=== PATIENT | female | born 1990 | race African-American/Black ===

== ENCOUNTER 2016-12-11 09:12 | Inpatient (IN) | payer OTHER ==
[2016-12-11 10:39] VITALS: BMI 32.8
--- NOTE | 2016-12-11 14:29 | HP ---
CIWA Score - CIWA Score Nausea/Vomitin Muscle Tremors: 3 Anxiety: 3 Agitation: 3 Paroxysmal Sweats: 2 Orientation: 0-Oriented Tacttile Disturbances: 2-Mild Itch/Numbness/Burn Auditory Disturbances: 2-Mild Harshness/Frighten Visual Disturbances: 2-Mild Sensitivity Headache: 2-Mild CIWA-Ar Total Score: 22 Admission ROS BHS - HPI Chief Complaint: i need help to stop using alcohol,marijuana Allergies/Adverse Reactions: Allergies Allergy/AdvReac Type Severity Reaction Status Date / Time No Known Allergies Allergy Verified 12/11/16 11:13 History of Present Illness: this 26 years old female with alcohol dependence,withdrawal symptom,never been in detox program syncope alcohol related nicotine dependence depression Exam Limitations: No Limitations - Ebola screening Have you traveled outside of the country in the last 21 days: No (N) Have you had contact with anyone from an Ebola affected area: No Have you been sick,other than usual withdrawal symptoms: No Do you have a fever: No - Review of Systems Constitutional: Malaise, Night Sweats, Changes in sleep, Weakness EENT: reports: Nose Congestion Respiratory: reports: No Symptoms reported Cardiac: reports: No Symptoms Reported GI: reports: Diarrhea, Nausea, Abdominal cramping : reports: No Symptoms Reported Musculoskeletal: reports: Back Pain, Muscle Pain Integumentary: reports: Dryness Neuro: reports: Headache, Tremors Endocrine: reports: No Symptoms Reported Hematology: reports: No Symptoms Reported Psychiatric: reports: Depressed Patient History - Patient Medical History Hx Anemia: No Hx Asthma: No Hx Chronic Obstructive Pulmonary Disease (COPD): No Hx Cancer: No Hx Cardiac Disorders: No Hx Congestive Heart Failure: No Hx Hypertension: No Hx Hypercholesterolemia: No Hx Seizures: No Hx Dementia: No Hx Diabetes: No Hx Gastrointestinal Disorders: No Hx Liver Disease: No Hx Genitourinary Disorders: No Hx Sexually Transmitted Disorders: No Hx Renal Disease (ESRD): No Hx Thyroid Disease: No Hx Human Immunodeficiency Virus (HIV): No (last 2014 negative) Hx Hepatitis C: No Hx Depression: Yes (no suicidal) Hx Suicide Attempt: Yes (cutter left since age of 14,over dose) Hx Bipolar Disorder: No Hx Schizophrenia: No Other Medical History: no suicidal,no homicidal - Patient Surgical History Hx Appendectomy: Yes (s/p lap appectomy age 19) Hx Section: Yes (2 years ago) - PPD History Previous Implant?: Yes Documented Results: Negative w/o proof PPD to be Administered?: Yes - Reproductive History Patient is a Female of Child Bearing Age (11 -55 yrs old): Yes Last Menstrual Period: 11/29/16 Patient : No - Smoking Cessation Smoking history: Current every day smoker Aproximately how many cigarettes per day: 10 Hx Chewing Tobacco Use: No Initiated information on smoking cessation: Yes 'Breaking Loose' booklet given: 12/11/16 - Substance & Tx. History Hx Alcohol Use: Yes Hx Substance Use: No Substance Use Type: Alcohol, Marijuana Hx Substance Use Treatment: No - Substances Abused Alcohol Route: Oral Frequency: Daily Amount used: Liquor-2 pints Age of first use: 18 Date of Last Use: 12/11/16 Marijuana/Hashish Route: Smoking Frequency: Daily Amount used: 30$ Age of first use: 14 Date of Last Use: 12/10/16 Family Disease History - Family Disease History Family History: Denies Admission Physical Exam [facility] - Vital Signs Vital Signs: Vital Signs - 24 hr 12/11/16 10:37 Temperature 98.2 F Pulse Rate 122 H Respiratory 20 Rate Blood Pressure 130/73 - Physical General Appearance: Yes: Moderate Distress, Tremorous, Irritable, Sweating, Anxious HEENTM: Yes: Nasal Congestion Respiratory: Yes: Lungs Clear Neck: Yes: Within Normal Limits Breast: Yes: Breast Exam Deferred Cardiology: Yes: Within Normal Limits, Regular Rhythm, Regular Rate, S1, S2 Abdominal: Yes: Within Normal Limits, Normal Bowel Sounds, Non Tender, Flat, Soft Genitourinary: Yes: Within Normal Limits Back: Yes: Muscle Spasm Musculoskeletal: Yes: Back pain, Muscle Pain Extremities: Yes: Tremors Neurological: Yes: spray gun sizer II-XII NML intact, Fully Oriented, Alert, Motor Strength 5/5 Integumentary: Yes: Dry Lymphatic: Yes: Within Normal Limits - Diagnostic (1) Alcohol dependence with uncomplicated withdrawal Current Visit: Yes Status: Acute (2) Cannabis dependence Current Visit: Yes Status: Acute (3) Depression Current Visit: Yes Status: Acute (4) Nicotine dependence Current Visit: Yes Status: Acute Cleared for Admission [facility] - Detox or Rehab [facility] Level of Care: Medically Managed Detox Regimen/Protocol: Librium [facility] Breath Alcohol Content Breath Alcohol Content: 0.053 Urine Pregancy Test - Result Urine Test Results: Negative- NO Line Present Urine Drug Screen - Results Drug Screen Negative: No Urine Drug Screen Results: THC-Marijuana, BZO-Benzodiazepines
[2016-12-11] MEDS ORDERED: NICOTINE POLACRILEX 2 MG GUM BUC PRN (14:44)
[2016-12-11] MEDS ORDERED: hydrOXYzine PAMOATE 50 MG CAPSULE (FP) PO PRN (14:44)
[2016-12-11] MEDS ORDERED: LOPERAMIDE HCL 2 MG CAPSULE PO PRN (14:44)
[2016-12-11] MEDS ORDERED: MENTHOL/PHENOL 1 EACH UD MM PRN (14:44)
[2016-12-11] MEDS ORDERED: MAGNESIUM HYDROX 2400MG/30ML ORAL SUSPENSION 30 ML CUP PO PRN (14:44)
[2016-12-11] MEDS ORDERED: ACETAMINOPHEN 325 MG TABLET (FP) PO PRN (14:44)
[2016-12-11] MEDS ORDERED: guaiFENesin/D-METHORPHAN HB 10 ML UNIT-DOSE CUPS PO PRN (14:44)
[2016-12-11] MEDS ORDERED: MAGNESIUM CITRATE 300 ML BOTTLE PO PRN (14:44)
[2016-12-11] MEDS ORDERED: P-EPHED 60MG/TRIPROLIDI 2.5MG TABLET PO PRN (14:44)
[2016-12-11] MEDS ORDERED: IBUPROFEN 400 MG TABLET (FP) PO PRN (14:44)
[2016-12-11] MEDS ORDERED: MAG HYDROX/AL HYDROX/SIMETH 30 ML UNIT-DOSE CUP PO PRN (14:44)
[2016-12-11] MEDS ORDERED: chlordiazePOXIDE HCL 25 MG CAPSULE PO ONE (14:57)
[2016-12-11] MEDS: NICOTINE 21 MG/24 HOURS TOPICAL PATCH TD SCH (15:27)
[2016-12-11] MEDS: chlordiazePOXIDE HCL 25 MG CAPSULE PO SCH ×2 (17:37→22:30)
[2016-12-11 18:18] LABS: URINE APPEARANCE SLCLOUDY; URINE BILIRUBIN NEGATIVE (NEGATIVE); URINE BLOOD 2+ (NEGATIVE); URINE COLOR YELLOW; URINE GLUCOSE (UA) NEGATIVE (NEGATIVE); URINE KETONE NEGATIVE (NEGATIVE); URINE LEUK ESTERASE 2+ (NEGATIVE); URINE NITRITE POSITIVE (NEGATIVE); URINE PROTEIN NEGATIVE (NEGATIVE); URINE UROBILINOGEN NEGATIVE E.U./dl (0.2-1.0)
[2016-12-11 18:26] LABS: URINE BACTERIA RARE /hpf (NONE SEEN); URINE MUCUS RARE; URINE RBC 6 /hpf (0-3); URINE WBC 195 /hpf (3-5)
[2016-12-11] MEDS: THIAMINE HCL 100 MG TABLET (FP) PO SCH (22:30)
[2016-12-11] MEDS: diphenhydrAMINE HCL 50 MG CAPSULE PO PRN (22:30)
[2016-12-12] MEDS: diphenhydrAMINE HCL 50 MG CAPSULE PO PRN (00:36)
[2016-12-12] MEDS: chlordiazePOXIDE HCL 25 MG CAPSULE PO PRN (00:37)
[2016-12-12] MEDS: chlordiazePOXIDE HCL 25 MG CAPSULE PO SCH ×4 (05:42→22:31)
[2016-12-12 10:11] LABS: MCH 30.5 pg (25.7-33.7); MCHC 33.7 g/dl (32.0-36.0); MEAN CELL VOLUME 90.7 fl (80-96); MEAN PLT VOLUME 8.1 fl (7.5-11.1); PLATELET COUNT 238 K/MM3 (134-434); RDW 14.4 % (11.6-15.6); WHITE BLOOD COUNT 5.5 K/mm3 (4.0-10.0)
[2016-12-12 10:33] LABS: ALBUMIN 3.5 g/dl (3.4-5.0); ALK PHOS 77 U/L (45-117); ANION GAP 9 (8-16); BILIRUBIN,TOTAL 0.3 mg/dL (0.2-1.0); CALCIUM 8.6 mg/dL (8.5-10.1); CO2 26 mmol/L (21-32); CREATININE 0.8 mg/dL (0.55-1.02); GLUCOSE,RANDOM 83 mg/dL (74-106); SGOT/AST 8 U/L (15-37); SGPT/ALT 14 U/L (12-78); TOT PROT 6.4 g/dl (6.4-8.2)
[2016-12-12] MEDS: PRENATAL VITAMINS W/ FOLIC ACID TABLET (FP) PO SCH (10:55)
[2016-12-12] MEDS: NICOTINE 21 MG/24 HOURS TOPICAL PATCH TD SCH (10:55)
[2016-12-12 12:16] LABS: SICKLE CELL SCREEN NEGATIVE (NEGATIVE)
--- NOTE | 2016-12-12 13:20 | PN ---
[facility] CIWA - CIWA Score Nausea/Vomitin Muscle Tremors: 3 Anxiety: 3 Agitation: 2 Paroxysmal Sweats: 3 Orientation: 0-Oriented Tacttile Disturbances: 2-Mild Itch/Numbness/Burn Auditory Disturbances: 0-None Visual Disturbances: 0-None Headache: 0-None Present CIWA-Ar Total Score: 16 S Progress Note (SOAP) Subjective: interrupted sleep, sweats, stomach upset Objective: 12/12/16 13:18 Vital Signs Temperature 97.7 F 12/12/16 10:14 Pulse Rate 107 H 12/12/16 10:14 Respiratory Rate 18 12/12/16 10:14 Blood Pressure 132/88 12/12/16 10:14 O2 Sat by Pulse Oximetry (%) Laboratory Tests 12/11/16 12/12/16 12/12/16 17:00 08:00 08:00 WBC 5.5 RBC 4.28 Hgb 13.1 Hct 38.8 MCV 90.7 MCHC 33.7 RDW 14.4 Plt Count 238 MPV 8.1 Sickle Cell Screen Negative Sodium 140 Potassium 3.9 Chloride 105 Carbon Dioxide 26 Anion Gap 9 BUN 7 Creatinine 0.8 Creat Clearance w eGFR > 60 Random Glucose 83 Calcium 8.6 Total Bilirubin 0.3 AST 8 L ALT 14 Alkaline Phosphatase 77 Total Protein 6.4 Albumin 3.5 Urine Color Yellow Urine Appearance Slcloudy Urine pH 6.0 Ur Specific [place] 1.016 Urine Protein Negative Urine Glucose (UA) Negative Urine Ketones Negative Urine Blood 2+ H Urine Nitrite Positive Urine Bilirubin Negative Urine Urobilinogen Negative Ur Leukocyte Esterase 2+ H Urine RBC 6 Urine WBC 195 Ur Epithelial Cells Rare Urine Bacteria Rare Urine Mucus Rare RPR Titer 12/12/16 08:00 WBC RBC Hgb Hct MCV MCHC RDW Plt Count MPV Sickle Cell Screen Sodium Potassium Chloride Carbon Dioxide Anion Gap BUN Creatinine Creat Clearance w eGFR Random Glucose Calcium Total Bilirubin AST ALT Alkaline Phosphatase Total Protein Albumin Urine Color Urine Appearance Urine pH Ur Specific [place] Urine Protein Urine Glucose (UA) Urine Ketones Urine Blood Urine Nitrite Urine Bilirubin Urine Urobilinogen Ur Leukocyte Esterase Urine RBC Urine WBC Ur Epithelial Cells Urine Bacteria Urine Mucus RPR Titer Nonreactive pt aox3 in nad ambulating abd soft nontender bs ++ 12/12/16 13:19 Assessment: 12/12/16 13:19 withdrawl sx's 12/12/16 13:20 abn u/a Plan: cont. detox increase fluids [place] prn repeat u/a
--- NOTE | 2016-12-12 15:40 | CONSULT ---
[facility] - Data Date of interview: 12/12/16 [facility] Identifying data: First admission to [facility] for this 26 y/o AA female seeking detox treatment on for alcohol and cannabis dependence.Patient is single,a mother of one,domiciled,unemployed and supported on Public Assistance. Substance Abuse History: - Smoking Cessation. Smoking history: Current every day smoker. Aproximately how many cigarettes per day: 10. Hx Chewing Tobacco Use: No. Initiated information on smoking cessation: Yes. 'Breaking Loose' booklet given: 12/11/16. - Substance & Tx. History. Hx Alcohol Use: Yes. Hx Substance Use: No. Substance Use Type: Alcohol, Marijuana. Hx Substance Use Treatment: No. - Substances Abused. Alcohol. Route: Oral. Frequency: Daily. Amount used: Liquor-2 pints. Age of first use: 18. Date of Last Use: 12/11/16. Marijuana/Hashish. Route: Smoking. Frequency: Daily. Amount used: 30$. Age of first use: 14. Date of Last Use: 12/10/16. Confirmed by the patient in this interview. Medical History: History of appendectomy and one . Psychiatric History: Patient denies history of psychiatric hospitalizations.No history of OPD care.Ms Queen offers a remote history of suicide attempts (age 13 ) via self-mutilation and overdose with pills. Physical/Sexual Abuse/Trauma History: Patient denies. Additional Comment: Urine Drug Screen Results: THC-Marijuana, BZO- Benzodiazepines.Noted. Mental Status Exam - Mental Status Exam Alert and Oriented to: Time, Place, Person Cognitive Function: Good Patient Appearance: Disheveled (overweight) Mood: Withdrawn, Hopeful Affect: Normal Range Patient Behavior: Fatigued, Appropriate, Cooperative Speech Pattern: Clear Voice Loudness: Normal Thought Process: Goal Oriented Thought Disorder: Not Present Hallucinations: Denies Suicidal Ideation: Denies Homicidal Ideation: Denies Insight/Judgement: Poor Sleep: Poorly, Difficulty falling asleep Appetite: Good Muscle strength/Tone: Normal Gait/Station: Normal Psychiatric Findings - Problem List ([place] 1, 2,3) (1) Alcohol dependence with uncomplicated withdrawal Current Visit: Yes Status: Acute (2) Cannabis dependence Current Visit: Yes Status: Acute (3) Nicotine dependence Current Visit: Yes Status: Acute (4) Insomnia Current Visit: Yes Status: Acute - Initial Treatment Plan Initial Treatment Plan: Psychoeducation.Detoxification.Zolpidem 10 mg po hs prn for insomnia.Patient is made aware of parasomnias.She is in agreement with this plan of care.Observation.
--- NOTE | 2016-12-12 21:36 | EKG ---
Test Reason : Blood Pressure : / mmHG Vent. Rate : 089 BPM Atrial Rate : 089 BPM P-R Int : 144 ms QRS Dur : 086 ms QT Int : 386 ms P-R-T Axes : 054 049 012 degrees QTc Int : 469 ms NORMAL SINUS RHYTHM NORMAL ECG NO PREVIOUS ECGS AVAILABLE Confirmed by GIULIA LECHUGA MD ([id number]) on 12/12/2016 9:35:52 PM Referred By: Confirmed By:GIULIA LECHUGA MD
[2016-12-12] MEDS: THIAMINE HCL 100 MG TABLET (FP) PO SCH (22:31)
[2016-12-12] MEDS: ZOLPIDEM TARTRATE 5 MG TABLET PO PRN (22:31)
[2016-12-12 22:58] LABS: URINE APPEARANCE CLOUDY; URINE BILIRUBIN NEGATIVE (NEGATIVE); URINE COLOR YELLOW; URINE GLUCOSE (UA) NEGATIVE (NEGATIVE); URINE KETONE NEGATIVE (NEGATIVE); URINE NITRITE POSITIVE (NEGATIVE); URINE PROTEIN NEGATIVE (NEGATIVE); URINE UROBILINOGEN NEGATIVE E.U./dl (0.2-1.0)
[2016-12-12 22:59] LABS: URINE BLOOD 2+ (NEGATIVE); URINE LEUK ESTERASE 2+ (NEGATIVE)
[2016-12-12 23:14] LABS: URINE BACTERIA RARE /hpf (NONE SEEN); URINE MUCUS RARE; URINE RBC 11 /hpf (0-3); URINE WBC 117 /hpf (3-5)
[2016-12-13] MEDS: chlordiazePOXIDE HCL 25 MG CAPSULE PO SCH ×2 (05:57→10:22)
[2016-12-13] MEDS: chlordiazePOXIDE HCL 25 MG CAPSULE PO PRN ×2 (09:38→19:10)
[2016-12-13] MEDS: NICOTINE 21 MG/24 HOURS TOPICAL PATCH TD SCH (10:21)
[2016-12-13] MEDS: PRENATAL VITAMINS W/ FOLIC ACID TABLET (FP) PO SCH (10:22)
--- NOTE | 2016-12-13 11:19 | PN ---
[facility] CIWA - CIWA Score Nausea/Vomitin-No Nausea/No Vomiting Muscle Tremors: 4-Moderate,w/Arms Extend Anxiety: 3 Agitation: 4-Moderately Restless Paroxysmal Sweats: 3 Orientation: 0-Oriented Tacttile Disturbances: 0-None Auditory Disturbances: 0-None Visual Disturbances: 0-None Headache: 1-Very Mild CIWA-Ar Total Score: 15 BHS COWS - Scale Resting Pulse: 0= MS 80 or Below Sweatin= Chills/Flushing Restless Observation: 0= Sits Still Pupil Size: 0= Normal to Room Light Bone or Joint Aches: 2= Severe Diffuse Aches Runny Nose/ Eye Tearin= Runny Nose/Eyes GI Upset > 30mins: 0= None Tremor Observation of Outstretched Hands: 2= Slight Tremor Visible Yawning Observation: 2= >3x During Session Anxiety or Irritability: 2=Irritable/Anxious Goose Flesh Skin: 3=Piloerection COWS Score: 14 S Progress Note (SOAP) Subjective: shakes sweats agitation body aches Objective: 12/13/16 11:19 Vital Signs Temperature 97.0 F L 12/13/16 10:26 Pulse Rate 95 H 12/13/16 10:26 Respiratory Rate 16 12/13/16 10:26 Blood Pressure 132/84 12/13/16 10:26 O2 Sat by Pulse Oximetry (%) Laboratory Tests 12/11/16 12/12/16 12/12/16 17:00 08:00 08:00 WBC 5.5 RBC 4.28 Hgb 13.1 Hct 38.8 MCV 90.7 MCHC 33.7 RDW 14.4 Plt Count 238 MPV 8.1 Sickle Cell Screen Negative Sodium 140 Potassium 3.9 Chloride 105 Carbon Dioxide 26 Anion Gap 9 BUN 7 Creatinine 0.8 Creat Clearance w eGFR > 60 Random Glucose 83 Calcium 8.6 Total Bilirubin 0.3 AST 8 L ALT 14 Alkaline Phosphatase 77 Total Protein 6.4 Albumin 3.5 Urine Color Yellow Urine Appearance Slcloudy Urine pH 6.0 Ur Specific [place] 1.016 Urine Protein Negative Urine Glucose (UA) Negative Urine Ketones Negative Urine Blood 2+ H Urine Nitrite Positive Urine Bilirubin Negative Urine Urobilinogen Negative Ur Leukocyte Esterase 2+ H Urine RBC 6 Urine WBC 195 Ur Epithelial Cells Rare Urine Bacteria Rare Urine Mucus Rare RPR Titer 12/12/16 12/12/16 08:00 19:07 WBC RBC Hgb Hct MCV MCHC RDW Plt Count MPV Sickle Cell Screen Sodium Potassium Chloride Carbon Dioxide Anion Gap BUN Creatinine Creat Clearance w eGFR Random Glucose Calcium Total Bilirubin AST ALT Alkaline Phosphatase Total Protein Albumin Urine Color Yellow Urine Appearance Cloudy Urine pH 6.0 Ur Specific [place] 1.015 Urine Protein Negative Urine Glucose (UA) Negative Urine Ketones Negative Urine Blood 2+ H Urine Nitrite Positive Urine Bilirubin Negative Urine Urobilinogen Negative Ur Leukocyte Esterase 2+ H Urine RBC 11 Urine WBC 117 Ur Epithelial Cells Few Urine Bacteria Rare Urine Mucus Rare RPR Titer Nonreactive awake/alert ambulating no acute distress repeated u/a improved pt denies of any s/s uti Assessment: 12/13/16 11:21 withdrawal sx Plan: continue detox increase fluids ensure plus 120ml p bid
[2016-12-13] MEDS ORDERED: cloNIDine HCL 0.1 MG TABLET PO ONE (11:23)
[2016-12-13] MEDS: chlordiazePOXIDE 5 MG CAPSULE PO SCH ×2 (18:08→22:35)
[2016-12-13] MEDS: ZOLPIDEM TARTRATE 5 MG TABLET PO PRN (22:35)
[2016-12-13] MEDS: THIAMINE HCL 100 MG TABLET (FP) PO SCH (22:36)
[2016-12-14] MEDS: chlordiazePOXIDE 5 MG CAPSULE PO SCH ×2 (05:30→10:23)
--- NOTE | 2016-12-14 10:09 | PN ---
BHS Progress Note (SOAP) Subjective: interrupted sleep, sweats, diarrhea Objective: 12/14/16 10:08 Vital Signs Temperature 98.2 F 12/14/16 09:54 Pulse Rate 99 H 12/14/16 09:54 Respiratory Rate 18 12/14/16 09:54 Blood Pressure 112/77 12/14/16 09:54 O2 Sat by Pulse Oximetry (%) 12/14/16 11:41 pt aox3 in nad ambulating Assessment: 12/14/16 10:08 withdrawal sx's 12/14/16 11:42 Plan: cont, detox increase fluids imodium prn d/c in am
[2016-12-14] MEDS: PRENATAL VITAMINS W/ FOLIC ACID TABLET (FP) PO SCH (10:23)
[2016-12-14] MEDS: NICOTINE 21 MG/24 HOURS TOPICAL PATCH TD SCH (10:24)
[2016-12-14] MEDS: chlordiazePOXIDE HCL 10 MG CAPSULE PO SCH ×2 (17:08→22:15)
[2016-12-14] MEDS: THIAMINE HCL 100 MG TABLET (FP) PO SCH (22:15)
[2016-12-14] MEDS: ZOLPIDEM TARTRATE 5 MG TABLET PO PRN (22:16)
[2016-12-15] MEDS: chlordiazePOXIDE HCL 10 MG CAPSULE PO SCH (05:28)
[2016-12-15 06:53] VITALS: BP 110/63; PULSE 83; TEMP 98.2
--- NOTE | 2016-12-15 15:10 | DS ---
[facility] Detox Discharge Summary Admission Date: 12/11/16 Discharge Date: 12/15/16 - History Present History: Alcohol Dependence, Cannabis Dependence Additional Comments: ADVISED PATIENT TO FOLLOW-UP WITH [facility] / REHAB MEDICAL PROVIDER AFTER DISCHARGE FROM DETOX FOR GENERAL MEDICAL ASSESSMENT. Pertinent Past History: Depression. - Physical Exam Results Vital Signs: Vital Signs Temperature 98.2 F 12/15/16 06:52 Pulse Rate 83 12/15/16 06:52 Respiratory Rate 18 12/15/16 06:52 Blood Pressure 110/63 12/15/16 06:52 O2 Sat by Pulse Oximetry (%) Pertinent Admission Physical Exam Findings: WITHDRAWAL SYMPTOMS. Laboratory Last Values WBC 5.5 K/mm3 (4.0-10.0) 12/12/16 08:00 RBC 4.28 M/mm3 (3.60-5.2) 12/12/16 08:00 Hgb 13.1 GM/dL (10.7-15.3) 12/12/16 08:00 Hct 38.8 % (32.4-45.2) 12/12/16 08:00 MCV 90.7 fl (80-96) 12/12/16 08:00 MCHC 33.7 g/dl (32.0-36.0) 12/12/16 08:00 RDW 14.4 % (11.6-15.6) 12/12/16 08:00 Plt Count 238 K/MM3 (134-434) 12/12/16 08:00 MPV 8.1 fl (7.5-11.1) 12/12/16 08:00 Sickle Cell Screen Negative (NEGATIVE) 12/12/16 08:00 Sodium 140 mmol/L (136-145) 12/12/16 08:00 Potassium 3.9 mmol/L (3.5-5.1) 12/12/16 08:00 Chloride 105 mmol/L (98-107) 12/12/16 08:00 Carbon Dioxide 26 mmol/L (21-32) 12/12/16 08:00 Anion Gap 9 (8-16) 12/12/16 08:00 BUN 7 mg/dL (7-18) 12/12/16 08:00 Creatinine 0.8 mg/dL (0.55-1.02) 12/12/16 08:00 Creat Clearance w eGFR > 60 (>60) 12/12/16 08:00 Random Glucose 83 mg/dL (74-106) 12/12/16 08:00 Calcium 8.6 mg/dL (8.5-10.1) 12/12/16 08:00 Total Bilirubin 0.3 mg/dL (0.2-1.0) 12/12/16 08:00 AST 8 U/L (15-37) L 12/12/16 08:00 ALT 14 U/L (12-78) 12/12/16 08:00 Alkaline Phosphatase 77 U/L (45-117) 12/12/16 08:00 Total Protein 6.4 g/dl (6.4-8.2) 12/12/16 08:00 Albumin 3.5 g/dl (3.4-5.0) 12/12/16 08:00 Urine Color Yellow 12/12/16 19:07 Urine Appearance Cloudy 12/12/16 19:07 Urine pH 6.0 (5.0-8.0) 12/12/16 19:07 Ur Specific [place] 1.015 (1.001-1.035) 12/12/16 19:07 Urine Protein Negative (NEGATIVE) 12/12/16 19:07 Urine Glucose (UA) Negative (NEGATIVE) 12/12/16 19:07 Urine Ketones Negative (NEGATIVE) 12/12/16 19:07 Urine Blood 2+ (NEGATIVE) H 12/12/16 19:07 Urine Nitrite Positive (NEGATIVE) 12/12/16 19:07 Urine Bilirubin Negative (NEGATIVE) 12/12/16 19:07 Urine Urobilinogen Negative E.U./dl (0.2-1.0) 12/12/16 19:07 Ur Leukocyte Esterase 2+ (NEGATIVE) H 12/12/16 19:07 Urine RBC 11 /hpf (0-3) 12/12/16 19:07 Urine WBC 117 /hpf (3-5) 12/12/16 19:07 Ur Epithelial Cells Few /hpf (FEW) 12/12/16 19:07 Urine Bacteria Rare /hpf (NONE SEEN) 12/12/16 19:07 Urine Mucus Rare 12/12/16 19:07 RPR Titer Nonreactive (NONREACTIVE) 12/12/16 08:00 LABS NOTED. - Treatment Hospital Course: Detox Protocol Followed, Detoxed Safely, Responded well, Discharged Condition Good - Medication Discharge Medications: Ambulatory Orders NK [No Known Home Medication] 12/11/16 - Diagnosis (1) Alcohol dependence with uncomplicated withdrawal Status: Acute (2) Cannabis dependence Status: Acute (3) Depression Status: Chronic Qualifiers: Depression Type: unspecified Qualified Code(s): F32.9 - Major depressive disorder, single episode, unspecified (4) Insomnia Status: Chronic Qualifiers: Insomnia type: unspecified Qualified Code(s): G47.00 - Insomnia, unspecified (5) Nicotine dependence Status: Chronic Qualifiers: Nicotine product type: cigarettes Substance use status: uncomplicated Qualified Code(s): F17.210 - Nicotine dependence, cigarettes, uncomplicated - AMA Did Patient Leave Against Medical Advice: No
== END 2016-12-15 09:23 | disposition home or self-care (01) | DRG 775 ==
LOC: YASAS 09:12 → Y6N 11:59
PROVIDERS: ADMIT Internal Medicine; ATTEND Internal Medicine Addiction Medicine
PROC: HZ2ZZZZ Detoxification Services for Substance Abuse Treatment (ICD-10-PCS; principal; 2016-12-15)
DX: F10.230 Alcohol dependence with withdrawal, uncomplicated (principal); F12.20 Cannabis dependence, uncomplicated; F17.210 Nicotine dependence, cigarettes, uncomplicated; F32.9 Major depressive disorder, single episode, unspecified; G47.00 Insomnia, unspecified
CPT/HCPCS: 36415; 80053; 81003; 81015; 85027; 85660; 86593; 93005; 93010

== ENCOUNTER 2016-12-26 15:37 | Inpatient (IN) | payer OTHER ==
[2016-12-26 18:03] VITALS: BMI 31.6
--- NOTE | 2016-12-26 19:39 | HP ---
CIWA Score - CIWA Score Nausea/Vomitin-Mild Nausea/No Vomiting Muscle Tremors: 4-Moderate,w/Arms Extend Anxiety: 4-Mod. Anxious/Guarded Agitation: 4-Moderately Restless Paroxysmal Sweats: 2 Orientation: 1-Uncertain about Date Tacttile Disturbances: 0-None Auditory Disturbances: 0-None Visual Disturbances: 0-None Headache: 3-Moderate CIWA-Ar Total Score: 19 Admission ROS BHS - HPI Chief Complaint: WITHDRAWAL SX Allergies/Adverse Reactions: Allergies Allergy/AdvReac Type Severity Reaction Status Date / Time No Known Allergies Allergy Verified 12/26/16 18:06 History of Present Illness: 26 YEARS OLD FEMALE WITH LONG HISTORY OF ALCOHOL MARIJUANA COCAINE XANAX NICOTINE DEPENDENCE DENIES MEDICAL HAS DEPRESSION IS ADMITTED TO DETOX BP 162/87 UPON ADMISSION WITH HEADACHE, LIBRIUM 50 MG X 1 Exam Limitations: No Limitations - Ebola screening Have you traveled outside of the country in the last 21 days: No Have you had contact with anyone from an Ebola affected area: No Have you been sick,other than usual withdrawal symptoms: No Do you have a fever: No - Review of Systems Constitutional: Chills, Changes in sleep, Weight Stable EENT: reports: No Symptoms Reported Respiratory: reports: No Symptoms reported Cardiac: reports: No Symptoms Reported GI: reports: Nausea, Poor Fluid Intake, Abdominal cramping : reports: No Symptoms Reported Musculoskeletal: reports: Back Pain Integumentary: reports: No Symptoms Reported Neuro: reports: Tremors Endocrine: reports: No Symptoms Reported Hematology: reports: No Symptoms Reported Psychiatric: reports: Judgement Intact, Depressed Other Systems: Reviewed and Negative Patient History - Patient Medical History Hx Anemia: No Hx Asthma: Yes Hx Chronic Obstructive Pulmonary Disease (COPD): No Hx Cancer: No Hx Cardiac Disorders: No Hx Congestive Heart Failure: No Hx Hypertension: No Hx Hypercholesterolemia: No Hx Pacemaker: No HX Cerebrovascular Accident: No Hx Seizures: No Hx Dementia: No Hx Diabetes: No Hx Gastrointestinal Disorders: No Hx Liver Disease: No Hx Genitourinary Disorders: No Hx Sexually Transmitted Disorders: No Hx Renal Disease (ESRD): No Hx Thyroid Disease: No Hx Human Immunodeficiency Virus (HIV): No (last 2014 negative) Hx Hepatitis C: No Hx Depression: Yes Hx Suicide Attempt: Yes (cutter left since age of 14,over dose) Hx Bipolar Disorder: No Hx Schizophrenia: No - Patient Surgical History Past Surgical History: Yes Hx Neurologic Surgery: No Hx Cataract Extraction: No Hx Cardiac Surgery: No Hx Lung Surgery: No Hx Breast Surgery: No Hx Breast Biopsy: No Hx Abdominal Surgery: No Hx Appendectomy: Yes (s/p lap appectomy age 19) Hx Cholecystectomy: No Hx Genitourinary Surgery: No Hx Section: Yes (2014) Hx Orthopedic Surgery: No Hx Hysterectomy: No Anesthesia Reaction: No - PPD History Previous Implant?: Yes Documented Results: Negative w/proof Implanted On Prior [facility] Admission?: Yes Date: 12/13/16 Results: 0 mm PPD to be Administered?: No - Reproductive History Patient is a Female of Child Bearing Age (11 -55 yrs old): Yes Last Menstrual Period: 12/25/16 Patient : No - Smoking Cessation Smoking history: Current every day smoker Aproximately how many cigarettes per day: 20 Cigars Per Day: 0 Hx Chewing Tobacco Use: No Initiated information on smoking cessation: Yes 'Breaking Loose' booklet given: 12/26/16 - Substance & Tx. History Hx Alcohol Use: Yes Hx Substance Use: Yes Substance Use Type: Alcohol, Cocaine, Marijuana, Tranquilizers Hx Substance Use Treatment: Yes - Substances Abused Alcohol Route: Oral Frequency: Daily Amount used: cogniac 1 pint, jose alfredo 1 pint, beer 2 of 6p Age of first use: 12 Date of Last Use: 12/26/16 Cocaine Route: Inhalation Frequency: Daily Amount used: 1 gram Age of first use: 18 Date of Last Use: 12/24/16 Marijuana/Hashish Route: Smoking Frequency: Daily Amount used: $40 Age of first use: 14 Date of Last Use: 12/26/16 Family Disease History - Family Disease History Family Disease History: Diabetes: Father, Mother, Heart Disease: Father, Mother , CA: Father, Mother Admission Physical Exam [facility]HS - Vital Signs Vital Signs: Vital Signs - 24 hr 12/26/16 18:02 Temperature 97.8 F Pulse Rate 121 H Respiratory 20 Rate Blood Pressure 162/87 - Physical General Appearance: Yes: Appropriately Dressed, Moderate Distress, Obese, Tremorous, Irritable, Sweating, Anxious HEENTM: Yes: Hearing grossly Normal, Normal ENT Inspection, Normocephalic, Normal Voice Respiratory: Yes: Chest Non-Tender, Lungs Clear, Normal Breath Sounds, No Respiratory Distress, No Accessory Muscle Use Neck: Yes: Supple, Trachea in good position Cardiology: Yes: Regular Rhythm, S1, S2, Tachycardia Abdominal: Yes: Non Tender, Soft Genitourinary: Yes: Within Normal Limits Back: Yes: Normal Inspection Musculoskeletal: Yes: full range of Motion, Gait Steady, Back pain Extremities: Yes: Normal Inspection, Normal Range of Motion, Non-Tender, Tremors Neurological: Yes: Alert, Motor Strength 5/5, Normal Response, Depressed Affect Integumentary: Yes: Warm, Moist Lymphatic: Yes: Within Normal Limits - Diagnostic (1) Alcohol dependence with uncomplicated withdrawal Current Visit: Yes Status: Acute (2) Nicotine dependence Current Visit: Yes Status: Acute Qualifiers: Nicotine product type: cigarettes Substance use status: in withdrawal Qualified Code(s): F17.213 - Nicotine dependence, cigarettes, with withdrawal (3) Cocaine dependence, uncomplicated Current Visit: Yes Status: Chronic (4) Cannabis dependence, uncomplicated Current Visit: Yes Status: Chronic (5) Asthma Current Visit: Yes Status: Acute Qualifiers: Asthma severity: mild intermittent Asthma complication type: with status asthmaticus Qualified Code(s): J45.22 - Mild intermittent asthma with status asthmaticus Cleared for Admission [facility] - Detox or Rehab [facility] Level of Care: Medically Managed Detox Regimen/Protocol: Librium [facility] Breath Alcohol Content Breath Alcohol Content: 0 Urine Pregancy Test - Result Urine Test Results: Negative- NO Line Present Urine Drug Screen - Results Drug Screen Negative: No Urine Drug Screen Results: THC-Marijuana, ISAIAS-Cocaine, BZO-Benzodiazepines
[2016-12-26] MEDS ORDERED: ACETAMINOPHEN 325 MG TABLET (FP) PO PRN (19:48)
[2016-12-26] MEDS ORDERED: IBUPROFEN 400 MG TABLET (FP) PO PRN (19:48)
[2016-12-26] MEDS ORDERED: MAG HYDROX/AL HYDROX/SIMETH 30 ML UNIT-DOSE CUP PO PRN (19:48)
[2016-12-26] MEDS ORDERED: MAGNESIUM CITRATE 300 ML BOTTLE PO PRN (19:48)
[2016-12-26] MEDS ORDERED: diphenhydrAMINE HCL 50 MG CAPSULE PO PRN (19:48)
[2016-12-26] MEDS ORDERED: MAGNESIUM HYDROX 2400MG/30ML ORAL SUSPENSION 30 ML CUP PO PRN (19:48)
[2016-12-26] MEDS ORDERED: LOPERAMIDE HCL 2 MG CAPSULE PO PRN (19:48)
[2016-12-26] MEDS ORDERED: chlordiazePOXIDE HCL 25 MG CAPSULE PO PRN (19:48)
[2016-12-26] MEDS ORDERED: guaiFENesin/D-METHORPHAN HB 10 ML UNIT-DOSE CUPS PO PRN (19:48)
[2016-12-26] MEDS ORDERED: P-EPHED 60MG/TRIPROLIDI 2.5MG TABLET PO PRN (19:48)
[2016-12-26] MEDS ORDERED: MENTHOL/PHENOL 1 EACH UD MM PRN (19:48)
[2016-12-26] MEDS ORDERED: NICOTINE POLACRILEX 4 MG GUM BUC PRN (19:51)
[2016-12-26] MEDS ORDERED: ALBUTEROL SO4 6.7 GM HFA INHALER IH PRN (19:52)
[2016-12-26] MEDS ORDERED: THIAMINE HCL 100 MG TABLET (FP) PO SCH (22:00)
[2016-12-26] MEDS: chlordiazePOXIDE HCL 25 MG CAPSULE PO SCH (22:43)
[2016-12-26 22:55] LABS: URINE APPEARANCE CLEAR; URINE BILIRUBIN NEGATIVE (NEGATIVE); URINE COLOR STRAW; URINE GLUCOSE (UA) NEGATIVE (NEGATIVE); URINE KETONE NEGATIVE (NEGATIVE); URINE LEUK ESTERASE NEGATIVE (NEGATIVE); URINE NITRITE NEGATIVE (NEGATIVE); URINE PROTEIN NEGATIVE (NEGATIVE); URINE UROBILINOGEN NEGATIVE E.U./dl (0.2-1.0)
[2016-12-26 22:56] LABS: URINE BLOOD 2+ (NEGATIVE)
[2016-12-26 23:02] LABS: URINE MUCUS RARE; URINE RBC 4 /hpf (0-3); URINE WBC 3 /hpf (3-5)
[2016-12-27] MEDS: chlordiazePOXIDE HCL 25 MG CAPSULE PO SCH ×2 (05:46→11:27)
--- NOTE | 2016-12-27 07:38 | CONSULT ---
[facility] Psychiatric Consult - Data Date of interview: 12/27/16 Admission source: [facility] Identifying data: This is 26 years old female with no psychiatric hospitalization history intoxicated with: Alcohol, Cannabis, Cocaine and Nicotine Substance Abuse History: - Smoking Cessation. Smoking history: Current every day smoker. Aproximately how many cigarettes per day: 20. Cigars Per Day: 0. Hx Chewing Tobacco Use: No. Initiated information on smoking cessation: Yes. ' Breaking Loose' booklet given: 12/26/16. - Substance & Tx. History. Hx Alcohol Use: Yes. Hx Substance Use: Yes. Substance Use Type: Alcohol, Cocaine , Marijuana, Tranquilizers. Hx Substance Use Treatment: Yes. - Substances Abused. Alcohol. Route: Oral. Frequency: Daily. Amount used: cogniac 1 pint, jose alfredo 1 pint, beer 2 of 6p. Age of first use: 12. Date of Last Use: 05/07. Cocaine. Route: Inhalation. Frequency: Daily. Amount used: 1 gram. Age of first use: 18. Date of Last Use: 12/24/16. Marijuana/ Hashish. Route: Smoking. Frequency: Daily. Amount used: $40. Age of first use: 14. Date of Last Use: 12/26/16 Medical History: Asthma Psychiatric History: Denies Physical/Sexual Abuse/Trauma History: Denies Additional Comment: Observation. Detox Unit Care Protocol Mental Status Exam - Mental Status Exam Alert and Oriented to: Person Cognitive Function: Fair Patient Appearance: Unkempt Mood: Sad Affect: Flat Patient Behavior: Sedated Speech Pattern: Delayed Voice Loudness: Mildly Soft/Quiet Thought Process: Circumstantial Thought Disorder: Being Controlled Hallucinations: Denies Suicidal Ideation: Denies Homicidal Ideation: Denies Insight/Judgement: Fair Sleep: Difficulty falling asleep Appetite: Fair Muscle strength/Tone: Mild Hypotonicity Gait/Station: Shuffling Additional Comments: Observation. Detox Unit Care Protocol Psychiatric Findings - Problem List ([place] 1, 2,3) (1) Alcohol dependence with uncomplicated withdrawal Current Visit: Yes Status: Acute (2) Nicotine dependence Current Visit: Yes Status: Acute Qualifiers: Nicotine product type: cigarettes Substance use status: in withdrawal Qualified Code(s): F17.213 - Nicotine dependence, cigarettes, with withdrawal (3) Cannabis dependence, uncomplicated Current Visit: Yes Status: Chronic (4) Cocaine dependence, uncomplicated Current Visit: Yes Status: Chronic (5) Cannabis dependence Current Visit: No Status: Acute (6) Drug-induced mood disorder Current Visit: Yes Status: Acute - Initial Treatment Plan Initial Treatment Plan: Observation. Detox Unit Care Protocol
[2016-12-27 09:59] LABS: MCH 30.7 pg (25.7-33.7); MCHC 33.8 g/dl (32.0-36.0); MEAN CELL VOLUME 90.7 fl (80-96); MEAN PLT VOLUME 8.2 fl (7.5-11.1); PLATELET COUNT 220 K/MM3 (134-434); RDW 14.7 % (11.6-15.6); WHITE BLOOD COUNT 5.7 K/mm3 (4.0-10.0)
[2016-12-27] MEDS ORDERED: NICOTINE 21 MG/24 HOURS TOPICAL PATCH TD SCH (10:00)
[2016-12-27] MEDS ORDERED: PRENATAL VITAMINS W/ FOLIC ACID TABLET (FP) PO SCH (10:00)
[2016-12-27 10:19] VITALS: BP 123/75; PULSE 92; TEMP 97.2
[2016-12-27 10:25] LABS: ALBUMIN 3.2 g/dl (3.4-5.0); ALK PHOS 69 U/L (45-117); ANION GAP 8 (8-16); BILIRUBIN,TOTAL 0.7 mg/dL (0.2-1.0); CALCIUM 8.5 mg/dL (8.5-10.1); CO2 27 mmol/L (21-32); CREATININE 0.6 mg/dL (0.55-1.02); GLUCOSE,RANDOM 85 mg/dL (74-106); SGOT/AST 10 U/L (15-37); SGPT/ALT 14 U/L (12-78); TOT PROT 6.2 g/dl (6.4-8.2)
[2016-12-27 11:07] LABS: HIV 1 & 2 AB NEGATIVE; HIV 1 AGp24 NEGATIVE
--- NOTE | 2016-12-27 11:52 | DS ---
[facility] Detox Discharge Summary Admission Date: 12/26/16 Discharge Date: 12/27/16 - History Present History: Alcohol Dependence, Cannabis Dependence, Cocaine Dependence - Physical Exam Results Vital Signs: Vital Signs Temperature 97.2 F L 12/27/16 10:18 Pulse Rate 92 H 12/27/16 10:18 Respiratory Rate 16 12/27/16 10:18 Blood Pressure 123/75 12/27/16 10:18 O2 Sat by Pulse Oximetry (%) - Treatment Hospital Course: Detox Protocol Followed - Medication Discharge Medications: Ambulatory Orders NK [No Known Home Medication] 12/11/16 - Diagnosis (1) Alcohol dependence with uncomplicated withdrawal Current Visit: Yes Status: Acute (2) Asthma Current Visit: Yes Status: Acute Qualifiers: Asthma severity: mild intermittent Asthma complication type: with status asthmaticus Qualified Code(s): J45.22 - Mild intermittent asthma with status asthmaticus - AMA Did Patient Leave Against Medical Advice: No
--- NOTE | 2016-12-27 12:52 | EKG ---
Test Reason : Blood Pressure : / mmHG Vent. Rate : 094 BPM Atrial Rate : 094 BPM P-R Int : 126 ms QRS Dur : 084 ms QT Int : 358 ms P-R-T Axes : 058 062 020 degrees QTc Int : 447 ms NORMAL SINUS RHYTHM POSSIBLE LEFT ATRIAL ENLARGEMENT T WAVE ABNORMALITY, CONSIDER ANTERIOR ISCHEMIA ABNORMAL ECG WHEN COMPARED WITH ECG OF 11-DEC-2016 15:41, T WAVE INVERSION NOW EVIDENT IN ANTERIOR LEADS Confirmed by RIGOBERTO CONTRERAS, AURA ([id number]) on 12/27/2016 12:52:31 PM Referred By: Confirmed By:AURA FRANKLIN MD
[2016-12-27] MEDS ORDERED: chlordiazePOXIDE HCL 25 MG CAPSULE PO SCH (23:00)
[2016-12-28] MEDS ORDERED: chlordiazePOXIDE 5 MG CAPSULE PO SCH (23:00)
[2016-12-29] MEDS ORDERED: chlordiazePOXIDE HCL 10 MG CAPSULE PO SCH (23:00)
== END 2016-12-27 12:19 | disposition other institution (70) | DRG 774 ==
LOC: YASAS 15:37 → Y6N 19:49
PROVIDERS: ADMIT Internal Medicine Addiction Medicine; ATTEND Internal Medicine Addiction Medicine
PROC: HZ2ZZZZ Detoxification Services for Substance Abuse Treatment (ICD-10-PCS; principal; 2016-12-26)
DX: F10.230 Alcohol dependence with withdrawal, uncomplicated (principal); F14.20 Cocaine dependence, uncomplicated; F12.20 Cannabis dependence, uncomplicated; F17.210 Nicotine dependence, cigarettes, uncomplicated; F19.24 Other psychoactive substance dependence with psychoactive substance-induced mood disorder; J45.22 Mild intermittent asthma with status asthmaticus; R00.0 Tachycardia, unspecified; Z91.5 Personal history of self-harm
CPT/HCPCS: 36415; 80053; 81003; 81015; 85027; 86593; 87389; 93005; 93010

== ENCOUNTER 2016-12-27 12:36 | Inpatient (IN) | payer OTHER ==
[2016-12-27 13:14] VITALS: BMI 32.2
[2016-12-27] MEDS ORDERED: MAGNESIUM HYDROX 2400MG/30ML ORAL SUSPENSION 30 ML CUP PO PRN (15:13)
[2016-12-27] MEDS ORDERED: MAG HYDROX/AL HYDROX/SIMETH 30 ML UNIT-DOSE CUP PO PRN (15:13)
[2016-12-27] MEDS ORDERED: ACETAMINOPHEN 325 MG TABLET (FP) PO PRN (15:13)
[2016-12-27] MEDS ORDERED: MAGNESIUM CITRATE 300 ML BOTTLE PO PRN (15:13)
[2016-12-27] MEDS ORDERED: guaiFENesin/D-METHORPHAN HB 10 ML UNIT-DOSE CUPS PO PRN (15:13)
[2016-12-27] MEDS ORDERED: LOPERAMIDE HCL 2 MG CAPSULE PO PRN (15:13)
[2016-12-27] MEDS ORDERED: NICOTINE POLACRILEX 2 MG GUM BUC PRN (15:13)
[2016-12-27] MEDS ORDERED: P-EPHED 60MG/TRIPROLIDI 2.5MG TABLET PO PRN (15:13)
[2016-12-27] MEDS ORDERED: MENTHOL/PHENOL 1 EACH UD MM PRN (15:13)
--- NOTE | 2016-12-27 15:14 | HP ---
[facility] CONTRERAS Rehab Assess/Revision - Admission History Admitted to Rehab from: [facility] [address] [place] Date of Admission to Rehab: 12/27/16 - Vital signs Vital Signs: Vital Signs Period Temp Pulse Resp BP Sys/Melissa Pulse Ox Last 24 Hr 98.2 F-98.2 F 94-94 18-18 119-119/85-85 - Findings Detox History & Physical reviewed: Yes Concur with findings: Yes
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
[2016-12-27] MEDS: THIAMINE HCL 100 MG TABLET (FP) PO SCH (21:36)
[2016-12-27] MEDS: GABAPENTIN 100 MG CAPSULE (FP) PO SCH (21:36)
[2016-12-27] MEDS: diphenhydrAMINE HCL 50 MG CAPSULE PO PRN (21:37)
[2016-12-28] MEDS: GABAPENTIN 100 MG CAPSULE (FP) PO SCH ×3 (06:29→21:36)
[2016-12-28] MEDS: hydrOXYzine PAMOATE 50 MG CAPSULE (FP) PO PRN ×2 (06:30→13:09)
[2016-12-28] MEDS: NICOTINE 21 MG/24 HOURS TOPICAL PATCH TD SCH (10:38)
[2016-12-28] MEDS: PRENATAL VITAMINS W/ FOLIC ACID TABLET (FP) PO SCH (10:38)
[2016-12-28] MEDS: THIAMINE HCL 100 MG TABLET (FP) PO SCH (21:36)
[2016-12-28] MEDS: diphenhydrAMINE HCL 50 MG CAPSULE PO PRN ×2 (21:36→23:11)
[2016-12-29] MEDS: hydrOXYzine PAMOATE 50 MG CAPSULE (FP) PO PRN ×3 (07:06→21:44)
[2016-12-29] MEDS: GABAPENTIN 100 MG CAPSULE (FP) PO SCH ×3 (07:08→21:45)
[2016-12-29] MEDS: NICOTINE 21 MG/24 HOURS TOPICAL PATCH TD SCH (10:44)
[2016-12-29] MEDS: PRENATAL VITAMINS W/ FOLIC ACID TABLET (FP) PO SCH (10:44)
[2016-12-29] MEDS: THIAMINE HCL 100 MG TABLET (FP) PO SCH (21:44)
[2016-12-29] MEDS: diphenhydrAMINE HCL 50 MG CAPSULE PO PRN (23:39)
[2016-12-30] MEDS: GABAPENTIN 100 MG CAPSULE (FP) PO SCH ×3 (06:39→21:24)
[2016-12-30] MEDS: hydrOXYzine PAMOATE 50 MG CAPSULE (FP) PO PRN ×3 (06:39→19:59)
[2016-12-30] MEDS: PRENATAL VITAMINS W/ FOLIC ACID TABLET (FP) PO SCH (10:06)
[2016-12-30] MEDS: NICOTINE 21 MG/24 HOURS TOPICAL PATCH TD SCH (10:06)
[2016-12-30] MEDS: THIAMINE HCL 100 MG TABLET (FP) PO SCH (21:24)
[2016-12-30] MEDS: IBUPROFEN 400 MG TABLET (FP) PO PRN (21:25)
[2016-12-30] MEDS: diphenhydrAMINE HCL 50 MG CAPSULE PO PRN (23:23)
[2016-12-31] MEDS: hydrOXYzine PAMOATE 50 MG CAPSULE (FP) PO PRN ×2 (06:23→13:09)
[2016-12-31] MEDS: GABAPENTIN 100 MG CAPSULE (FP) PO SCH ×3 (06:24→21:27)
[2016-12-31] MEDS: PRENATAL VITAMINS W/ FOLIC ACID TABLET (FP) PO SCH (10:11)
[2016-12-31] MEDS: NICOTINE 21 MG/24 HOURS TOPICAL PATCH TD SCH (10:11)
[2016-12-31] MEDS: THIAMINE HCL 100 MG TABLET (FP) PO SCH (21:27)
[2016-12-31] MEDS: diphenhydrAMINE HCL 50 MG CAPSULE PO PRN ×2 (21:27→23:07)
[2017-01-01] MEDS: hydrOXYzine PAMOATE 50 MG CAPSULE (FP) PO PRN ×2 (06:29→10:10)
[2017-01-01] MEDS: GABAPENTIN 100 MG CAPSULE (FP) PO SCH ×4 (06:29→21:35)
[2017-01-01] MEDS: NICOTINE 21 MG/24 HOURS TOPICAL PATCH TD SCH (10:10)
[2017-01-01] MEDS: PRENATAL VITAMINS W/ FOLIC ACID TABLET (FP) PO SCH (10:10)
[2017-01-01] MEDS ORDERED: COLLOIDAL OATMEAL 1 BAR EACH TP PRN (12:09)
--- NOTE | 2017-01-01 14:55 | PN ---
Psychiatric Progress Note Vital Signs: Vital Signs Period Temp Pulse Resp BP Sys/Melissa Pulse Ox Last 24 Hr 97.3 F 83 18-18 107/71 Date of Session: 01/01/17 Chief Complaint:: Quan still nervious,thinking a lot,having mood swings. HPI: Patient addressed Alcohol,Cannabis dependence comorbid with Substance induced mood disorder. ROS: Significant for BA. Current Medications: Active Medications Generic Name Dose Route Start Last Admin Trade Name Freq PRN Reason Stop Dose Admin Acetaminophen 650 mg 12/27/16 15:13 Tylenol - PO Q4H PRN FEVER OR PAIN Al Hydroxide/Mg Hydroxide 30 ml 12/27/16 15:13 Mylanta Oral Suspension - PO Q6H PRN DYSPEPSIA Colloidal Oatmeal 1 applic 01/01/17 12:09 01/01/17 13:31 Aveeno Soap - TP 1 applic DAILY PRN Administration HYGEINE Diphenhydramine HCl 50 mg 12/27/16 15:13 12/31/16 23:07 Benadryl - PO 50 mg HSMR1 PRN Administration FOR ITCHING Eucalyptus/Menthol/Phenol/Sorbitol 1 each 12/27/16 15:13 Cepastat Lozenge - MM Q4H PRN SORE THROAT Guaifenesin 10 ml 12/27/16 15:13 Robitussin Dm - PO Q6H PRN COUGH Hydroxyzine Pamoate 50 mg 12/27/16 16:50 01/01/17 10:10 Vistaril - PO 50 mg Q4H PRN Administration ANXIETY Ibuprofen 400 mg 12/27/16 15:13 12/30/16 21:25 Motrin - PO 400 mg Q6H PRN Administration PAIN Loperamide HCl 4 mg 12/27/16 15:13 Imodium - PO Q6H PRN DIARRHEA Magnesium Hydroxide 30 ml 12/27/16 15:13 Milk Of Magnesia - PO DAILY PRN CONSTIPATION Nicotine 21 mg 12/28/16 10:00 01/01/17 10:10 Nicoderm Patch - TD 21 mg DAILY ELIJAH Administration Nicotine Polacrilex 2 mg 12/27/16 15:13 Nicorette Gum - BUC Q2H PRN NICOTINE REPLACEMENT RX Olanzapine 2.5 mg 01/01/17 22:00 Zyprexa - PO BID ELIJAH Multivit/Folic Acid/Iron 1 tab 12/28/16 10:00 01/01/17 10:10 Vitamins (Sjr) - PO 1 tab DAILY ELIJAH Administration Pseudoephedrine/Triprolidine 1 combo 12/27/16 15:13 Actifed - PO TID PRN NASAL CONGESTION Sertraline HCl 25 mg 01/01/17 15:00 Zoloft - PO DAILY ELIJAH Thiamine HCl 100 mg 12/27/16 22:00 12/31/16 21:27 Vitamin B1 - PO 100 mg HS ELIJAH Administration Current Side Effect: No Lab tests ordered: No Lab tests reviewed: Yes Provider note:: Chart was revuwed,patient was evaluated regarding continues mood instability,anxiety,depression.Properties of Neurontin,Zyprexa and Zoloft has been discussed with the patient including side effects,benefits and dose adjustment.Neurontin 100 mg po tid will be. . adjusted to 200 mg po tid, Zyprexa 2,5 mg po bid and Zoloft 25 mg po daily. Supportive therapy provided. Total face to face time:: 30 Mental Status Exam - Mental Status Exam Alert and Oriented to: Time, Place, Person Cognitive Function: Grossly Intact Patient Appearance: Well Groomed Mood: Sad, Nervous, Anxious Affect: Labile Patient Behavior: Cooperative Speech Pattern: Clear Voice Loudness: Normal Thought Process: Goal Oriented Thought Disorder: Not Present Hallucinations: Denies Suicidal Ideation: Denies Homicidal Ideation: Denies Insight/Judgement: Fair Sleep: Difficulty falling asleep Appetite: Good Muscle strength/Tone: Normal Psychiatric Treatment Plan - Problem List (1) Asthma Current Visit: Yes Qualifiers: (2) Drug-induced mood disorder Current Visit: Yes (3) Nicotine dependence Current Visit: Yes Qualifiers: (4) Cannabis dependence Current Visit: Yes (5) Alcohol dependence Current Visit: Yes
[2017-01-01] MEDS: SERTRALINE HCL 25 MG TABLET (FP) PO SCH (15:07)
[2017-01-01] MEDS: diphenhydrAMINE HCL 50 MG CAPSULE PO PRN (21:33)
[2017-01-01] MEDS: THIAMINE HCL 100 MG TABLET (FP) PO SCH (21:33)
[2017-01-01] MEDS: OLANZapine 2.5 MG TABLET PO SCH (21:34)
[2017-01-02] MEDS: GABAPENTIN 100 MG CAPSULE (FP) PO SCH ×3 (06:52→21:23)
[2017-01-02] MEDS: SERTRALINE HCL 25 MG TABLET (FP) PO SCH (09:11)
[2017-01-02] MEDS: PRENATAL VITAMINS W/ FOLIC ACID TABLET (FP) PO SCH (09:11)
[2017-01-02] MEDS: NICOTINE 21 MG/24 HOURS TOPICAL PATCH TD SCH (09:11)
[2017-01-02] MEDS: OLANZapine 2.5 MG TABLET PO SCH ×2 (09:12→21:23)
[2017-01-02] MEDS: IBUPROFEN 400 MG TABLET (FP) PO PRN (09:12)
[2017-01-02] MEDS ORDERED: PT OWN MED DRAWER 7, Y5N ONE (20:37)
[2017-01-02] MEDS: THIAMINE HCL 100 MG TABLET (FP) PO SCH (21:23)
[2017-01-02] MEDS: diphenhydrAMINE HCL 50 MG CAPSULE PO PRN (22:44)
[2017-01-03] MEDS: GABAPENTIN 100 MG CAPSULE (FP) PO SCH ×3 (06:34→21:26)
[2017-01-03] MEDS: hydrOXYzine PAMOATE 50 MG CAPSULE (FP) PO PRN (06:34)
[2017-01-03] MEDS: SERTRALINE HCL 25 MG TABLET (FP) PO SCH (10:50)
[2017-01-03] MEDS: PRENATAL VITAMINS W/ FOLIC ACID TABLET (FP) PO SCH (10:50)
[2017-01-03] MEDS: NICOTINE 21 MG/24 HOURS TOPICAL PATCH TD SCH (10:52)
[2017-01-03] MEDS: OLANZapine 2.5 MG TABLET PO SCH ×2 (10:52→21:20)
[2017-01-03] MEDS ORDERED: PT OWN MED DRAWER 7, Y5N ONE ×2 (10:52→21:20)
[2017-01-03] MEDS: THIAMINE HCL 100 MG TABLET (FP) PO SCH (21:20)
[2017-01-03] MEDS: diphenhydrAMINE HCL 50 MG CAPSULE PO PRN ×2 (21:27→22:50)
[2017-01-04] MEDS: hydrOXYzine PAMOATE 50 MG CAPSULE (FP) PO PRN (06:29)
[2017-01-04] MEDS: GABAPENTIN 100 MG CAPSULE (FP) PO SCH ×3 (06:29→21:36)
[2017-01-04] MEDS: IBUPROFEN 400 MG TABLET (FP) PO PRN (09:07)
[2017-01-04] MEDS: NICOTINE 21 MG/24 HOURS TOPICAL PATCH TD SCH (10:26)
[2017-01-04] MEDS: OLANZapine 2.5 MG TABLET PO SCH ×2 (10:27→21:35)
[2017-01-04] MEDS: PRENATAL VITAMINS W/ FOLIC ACID TABLET (FP) PO SCH (10:27)
[2017-01-04] MEDS: SERTRALINE HCL 25 MG TABLET (FP) PO SCH (10:27)
--- NOTE | 2017-01-04 14:41 | PN ---
S Progress Note Note: call to evaluate the patient who is sliding to floor while sitting without paying attention no injury noted no loc no complaint [id number] bp 126/80 treatment fall precaution initiate fall protocol 2 close monitoring
[2017-01-04] MEDS: THIAMINE HCL 100 MG TABLET (FP) PO SCH (21:35)
[2017-01-04] MEDS: diphenhydrAMINE HCL 50 MG CAPSULE PO PRN ×2 (21:36→23:02)
[2017-01-05] MEDS: GABAPENTIN 100 MG CAPSULE (FP) PO SCH ×3 (06:15→21:32)
[2017-01-05] MEDS: hydrOXYzine PAMOATE 50 MG CAPSULE (FP) PO PRN ×2 (06:16→23:15)
[2017-01-05] MEDS: IBUPROFEN 400 MG TABLET (FP) PO PRN (09:03)
[2017-01-05] MEDS: NICOTINE 21 MG/24 HOURS TOPICAL PATCH TD SCH (10:49)
[2017-01-05] MEDS: PRENATAL VITAMINS W/ FOLIC ACID TABLET (FP) PO SCH (10:49)
[2017-01-05] MEDS: OLANZapine 2.5 MG TABLET PO SCH ×2 (10:49→21:31)
[2017-01-05] MEDS: SERTRALINE HCL 25 MG TABLET (FP) PO SCH (10:49)
[2017-01-05] MEDS: THIAMINE HCL 100 MG TABLET (FP) PO SCH (21:31)
[2017-01-05] MEDS: diphenhydrAMINE HCL 50 MG CAPSULE PO PRN (21:32)
[2017-01-06] MEDS: GABAPENTIN 100 MG CAPSULE (FP) PO SCH ×3 (06:48→21:26)
[2017-01-06] MEDS: PRENATAL VITAMINS W/ FOLIC ACID TABLET (FP) PO SCH (10:21)
[2017-01-06] MEDS: OLANZapine 2.5 MG TABLET PO SCH ×2 (10:21→21:26)
[2017-01-06] MEDS: NICOTINE 21 MG/24 HOURS TOPICAL PATCH TD SCH (10:21)
[2017-01-06] MEDS: SERTRALINE HCL 25 MG TABLET (FP) PO SCH (10:21)
[2017-01-06] MEDS: hydrOXYzine PAMOATE 50 MG CAPSULE (FP) PO PRN (13:54)
[2017-01-06] MEDS: THIAMINE HCL 100 MG TABLET (FP) PO SCH (21:26)
[2017-01-06] MEDS: diphenhydrAMINE HCL 50 MG CAPSULE PO PRN (21:27)
[2017-01-07] MEDS: GABAPENTIN 100 MG CAPSULE (FP) PO SCH ×3 (06:27→21:24)
[2017-01-07] MEDS: SERTRALINE HCL 25 MG TABLET (FP) PO SCH (10:08)
[2017-01-07] MEDS: PRENATAL VITAMINS W/ FOLIC ACID TABLET (FP) PO SCH (10:08)
[2017-01-07] MEDS: OLANZapine 2.5 MG TABLET PO SCH ×2 (10:09→21:24)
[2017-01-07] MEDS: NICOTINE 21 MG/24 HOURS TOPICAL PATCH TD SCH (10:09)
[2017-01-07] MEDS: hydrOXYzine PAMOATE 50 MG CAPSULE (FP) PO PRN ×2 (10:11→22:27)
[2017-01-07] MEDS: THIAMINE HCL 100 MG TABLET (FP) PO SCH (21:24)
[2017-01-07] MEDS: diphenhydrAMINE HCL 50 MG CAPSULE PO PRN (21:24)
[2017-01-08] MEDS: GABAPENTIN 100 MG CAPSULE (FP) PO SCH ×3 (06:32→21:25)
[2017-01-08] MEDS: NICOTINE 21 MG/24 HOURS TOPICAL PATCH TD SCH (10:01)
[2017-01-08] MEDS: SERTRALINE HCL 25 MG TABLET (FP) PO SCH (10:02)
[2017-01-08] MEDS: OLANZapine 2.5 MG TABLET PO SCH ×2 (10:02→21:25)
[2017-01-08] MEDS: PRENATAL VITAMINS W/ FOLIC ACID TABLET (FP) PO SCH (10:02)
[2017-01-08] MEDS: hydrOXYzine PAMOATE 50 MG CAPSULE (FP) PO PRN ×2 (10:03→17:47)
[2017-01-08] MEDS ORDERED: MINERAL OIL/PETROLAT/WATER TOPICAL CREAM 454 GM JAR TP PRN (14:23)
--- NOTE | 2017-01-08 16:58 | PN ---
Psychiatric Progress Note Vital Signs: Vital Signs Period Temp Pulse Resp BP Sys/Melissa Pulse Ox Last 24 Hr 97.9 F 84 17-18 103/74 Date of Session: 01/08/17 Chief Complaint:: Discharge visit. HPI: Patient addressed Alcohol and Cannabis dependence comorbid with Substance induced mood disorder. ROS: unremarkable Current Medications: Active Medications Generic Name Dose Route Start Last Admin Trade Name Freq PRN Reason Stop Dose Admin Acetaminophen 650 mg 12/27/16 15:13 Tylenol - PO Q4H PRN FEVER OR PAIN Al Hydroxide/Mg Hydroxide 30 ml 12/27/16 15:13 Mylanta Oral Suspension - PO Q6H PRN DYSPEPSIA Colloidal Oatmeal 1 applic 01/01/17 12:09 01/01/17 13:31 Aveeno Soap - TP 1 applic DAILY PRN Administration HYGEINE Diphenhydramine HCl 50 mg 12/27/16 15:13 01/07/17 21:24 Benadryl - PO 50 mg HSMR1 PRN Administration FOR ITCHING Eucalyptus/Menthol/Phenol/Sorbitol 1 each 12/27/16 15:13 Cepastat Lozenge - MM Q4H PRN SORE THROAT Gabapentin 200 mg 01/01/17 15:00 01/08/17 13:36 Neurontin - PO 200 mg TID ELIJAH Administration Guaifenesin 10 ml 12/27/16 15:13 Robitussin Dm - PO Q6H PRN COUGH Hydroxyzine Pamoate 50 mg 12/27/16 16:50 01/08/17 10:03 Vistaril - PO 50 mg Q4H PRN Administration ANXIETY Ibuprofen 400 mg 12/27/16 15:13 01/05/17 09:03 Motrin - PO 400 mg Q6H PRN Administration PAIN Loperamide HCl 4 mg 12/27/16 15:13 Imodium - PO Q6H PRN DIARRHEA Magnesium Hydroxide 30 ml 12/27/16 15:13 Milk Of Magnesia - PO DAILY PRN CONSTIPATION Multi-Ingredient Lotion 1 applic 01/08/17 14:23 Eucerin (Large Jar) - TP BID PRN DRY SKIN Nicotine 21 mg 12/28/16 10:00 01/08/17 10:01 Nicoderm Patch - TD 21 mg DAILY ELIJAH Administration Nicotine Polacrilex 2 mg 03/08/17 15:13 Nicorette Gum - BUC Q2H PRN NICOTINE REPLACEMENT RX Olanzapine 2.5 mg 01/01/17 22:00 01/08/17 10:02 Zyprexa - PO 2.5 mg BID ELIJAH Administration Multivit/Folic Acid/Iron 1 tab 12/28/16 10:00 01/08/17 10:02 Vitamins (Sjr) - PO 1 tab DAILY ELIJAH Administration Pseudoephedrine/Triprolidine 1 combo 12/27/16 15:13 Actifed - PO TID PRN NASAL CONGESTION Sertraline HCl 25 mg 01/01/17 15:00 01/08/17 10:02 Zoloft - PO 25 mg DAILY ELIJAH Administration Thiamine HCl 100 mg 12/27/16 22:00 01/07/17 21:24 Vitamin B1 - PO 100 mg HS ELIJAH Administration Current Side Effect: No Lab tests ordered: No Lab tests reviewed: Yes Provider note:: Patient will complete this program tomorrow 01/09/17.She has met her treatment goals and will continue to address her issuers on outpatient basis at [facility] program.Patient will continue current medications:Neurontin 200 mg po tid,Zoloft 25 mg po daily and Zyprexa 2, 5 mg po bid.Scripts for 30 days provided. Therapy provided focusing on coping skills,support utilization to maintain recovery. patient is stable for discharge tomorrow 01/09/17. Total face to face time:: 30 Mental Status Exam - Mental Status Exam Alert and Oriented to: Time, Place, Person Cognitive Function: Grossly Intact Patient Appearance: Well Groomed Mood: Hopeful, Euthymic Affect: Mood Congruent, Labile Patient Behavior: Cooperative Speech Pattern: Clear Voice Loudness: Normal Thought Process: Goal Oriented Thought Disorder: Not Present Hallucinations: Denies Suicidal Ideation: Denies Homicidal Ideation: Denies Insight/Judgement: Fair Sleep: Fair Appetite: Good Muscle strength/Tone: Normal Gait/Station: Normal Psychiatric Treatment Plan - Problem List (1) Asthma Current Visit: Yes Qualifiers: (2) Drug-induced mood disorder Current Visit: Yes (3) Nicotine dependence Current Visit: Yes Qualifiers: (4) Cannabis dependence Current Visit: Yes (5) Alcohol dependence Current Visit: Yes
[2017-01-08] MEDS: THIAMINE HCL 100 MG TABLET (FP) PO SCH (21:25)
[2017-01-08] MEDS: diphenhydrAMINE HCL 50 MG CAPSULE PO PRN (21:26)
[2017-01-09] MEDS: diphenhydrAMINE HCL 50 MG CAPSULE PO PRN (00:06)
[2017-01-09] MEDS: GABAPENTIN 100 MG CAPSULE (FP) PO SCH (06:25)
[2017-01-09 06:45] VITALS: BP 109/75; PULSE 91; TEMP 97.8
== END 2017-01-09 08:50 | disposition home or self-care (01) | DRG 772 ==
LOC: YASAS 12:36 → Y3E 12:41
PROVIDERS: ADMIT Psychiatry & Neurology Psychiatry; ATTEND Psychiatry & Neurology Psychiatry
PROC: HZ42ZZZ Group Counseling for Substance Abuse Treatment, Cognitive-Behavioral (ICD-10-PCS; principal; 2017-01-09)
DX: F10.20 Alcohol dependence, uncomplicated (principal); F12.20 Cannabis dependence, uncomplicated; F17.210 Nicotine dependence, cigarettes, uncomplicated; F19.24 Other psychoactive substance dependence with psychoactive substance-induced mood disorder; J45.909 Unspecified asthma, uncomplicated

== ENCOUNTER 2019-03-01 14:15 | Inpatient (IN) | payer OTHER ==
[2019-03-01 18:18] VITALS: BMI 20.5
--- NOTE | 2019-03-01 19:11 | HP ---
CIWA Score Nausea/Vomitin Muscle Tremors: 2 Anxiety: 3 Agitation: 2 Paroxysmal Sweats: 1-Minimal Palms Moist Orientation: 0-Oriented Tacttile Disturbances: 1-Very Mild Itch/Numbness Auditory Disturbances: 1-Very Mild Visual Disturbances: 0-None Headache: 2-Mild CIWA-Ar Total Score: 14 - Admission Criteria OASAS Guidelines: Admission for Medically Managed Detox: Requires at least one of the followin. CIWA greater than 12 2. Seizures within the past 24 hours 3. Delirium tremens within the past 24 hours 4. Hallucinations within the past 24 hours 5. Acute intervention needed for co occurring medical disorder 6. Acute intervention needed for co occurring psychiatric disorder 7. Severe withdrawal that cannot be handled at a lower level of care (continued vomiting, continued diarrhea, abnormal vital signs) requiring intravenous medication and/or fluids 8. Admission ROS S - HPI Chief Complaint: i need help to stop drinking alcohol,marijuana Allergies/Adverse Reactions: Allergies Allergy/AdvReac Type Severity Reaction Status Date / Time No Known Allergies Allergy Verified 03/01/19 19:09 History of Present Illness: this 29 years old female female with alcohol and marijuana ,seeking detox, withdrawal symptom last treatment 12/26/16 to 12/27/16 rehab 12/27/16 to 01/09/17 syncope nicotine dependence 7 cigarette,requesting patch and gum longest period of sobriety 7 months plan for rehab after detox history of asthma history of section history of lap appendectomy Exam Limitations: No Limitations - Ebola screening Have you traveled outside of the country in the last 21 days: No (N) Have you had contact with anyone from an Ebola affected area: No Do you have a fever: No - Review of Systems Constitutional: Malaise, Night Sweats, Weakness EENT: reports: Nose Congestion Respiratory: reports: No Symptoms reported Cardiac: reports: No Symptoms Reported GI: reports: Nausea, Vomiting, Abdominal cramping : reports: No Symptoms Reported Musculoskeletal: reports: Back Pain, Muscle Pain Integumentary: reports: Dryness Neuro: reports: Headache, Tremors Endocrine: reports: No Symptoms Reported Hematology: reports: No Symptoms Reported Psychiatric: reports: No Sypmtoms Reported, Judgement Intact, Mood/Affect Appropiate, Orientated x3, Anxious, Depressed, other (bipolar disorder) Other Systems: Reviewed and Negative Patient History - Patient Medical History Hx Anemia: No Hx Asthma: Yes (No recent asthma attacks) Hx Chronic Obstructive Pulmonary Disease (COPD): No Hx Cancer: No Hx Cardiac Disorders: No Hx Congestive Heart Failure: No Hx Hypertension: No Hx Hypercholesterolemia: No Hx Pacemaker: No HX Cerebrovascular Accident: No Hx Seizures: No Hx Dementia: No Hx Diabetes: No Hx Gastrointestinal Disorders: Yes Hx Liver Disease: No Hx Genitourinary Disorders: No Hx Sexually Transmitted Disorders: No Hx Renal Disease (ESRD): No Hx Thyroid Disease: No Hx Human Immunodeficiency Virus (HIV): No (last 2014 negative) Hx Hepatitis C: No Hx Depression: Yes Hx Suicide Attempt: Yes (1 month ago with PO analgesics at age 25 years) Hx Bipolar Disorder: No Hx Schizophrenia: No Other Medical History: no suicidal,no homicidal - Patient Surgical History Past Surgical History: Yes Hx Neurologic Surgery: No Hx Cataract Extraction: No Hx Cardiac Surgery: No Hx Lung Surgery: No Hx Breast Surgery: No Hx Breast Biopsy: No Hx Abdominal Surgery: No Hx Appendectomy: Yes (s/p lap appectomy age 20) Hx Cholecystectomy: No Hx Genitourinary Surgery: No Hx Section: Yes (02/13/2015) Hx Orthopedic Surgery: No Hx Hysterectomy: No Anesthesia Reaction: No - PPD History Previous Implant?: Yes Documented Results: Negative w/o proof Implanted On Prior R Admission?: Yes Date: 12/13/16 Results: 0 mm PPD to be Administered?: Yes - Reproductive History Patient is a Female of Child Bearing Age (11 -55 yrs old): Yes Last Menstrual Period: 03/01/19 Patient : No - Smoking Cessation Smoking history: Current every day smoker Have you smoked in the past 12 months: Yes Aproximately how many cigarettes per day: 7 Cigars Per Day: 0 Hx Chewing Tobacco Use: No Initiated information on smoking cessation: Yes 'Breaking Loose' booklet given: 03/01/19 - Substance & Tx. History Hx Alcohol Use: Yes Hx Substance Use: Yes Substance Use Type: Alcohol, Marijuana Hx Substance Use Treatment: Yes ([facility] 01/26/17 to 12/27/16,rehab 12/27/16 to ) - Substances abused Alcohol Substance route: Oral Frequency: Daily Amount used: 2pints of liquor Age of first use: 15 Date of last use: 03/01/19 Marijuana/Hashish Substance route: Smoking Frequency: Daily Amount used: 25$ Age of first use: 14 Date of last use: 03/01/19 Family Disease History - Family Disease History Family Disease History: Diabetes: Father, Mother, Heart Disease: Father, Mother , CA: Father, Mother Admission Physical Exam [facility] - Vital Signs Vital Signs: Vital Signs - 24 hr 03/01/19 18:16 Temperature 96.3 F L Pulse Rate 91 H Respiratory 18 Rate Blood Pressure 115/82 - Physical General Appearance: Yes: Moderate Distress, Irritable, Sweating, Anxious HEENTM: Yes: Normal Voice, [place], Pharynx Normal Respiratory: Yes: Lungs Clear, Normal Breath Sounds, No Respiratory Distress Neck: Yes: No masses,lesions,Nodules, Supple, Trachea in good position Breast: Yes: Breast Exam Deferred Cardiology: Yes: Within Normal Limits, Regular Rhythm, Regular Rate, S1, S2 Abdominal: Yes: Within Normal Limits, Normal Bowel Sounds, Non Tender, Soft, Surgical Scar Genitourinary: Yes: Within Normal Limits Back: Yes: Muscle Spasm Musculoskeletal: Yes: Within Normal Limits, Back pain, Muscle Pain Extremities: Yes: Tremors Neurological: Yes: Within Normal Limits, brusher hand II-XII NML intact, Alert, Motor Strength 5/5 Integumentary: Yes: Dry Lymphatic: Yes: Within Normal Limits - Diagnostic (1) Alcohol dependence with uncomplicated withdrawal Current Visit: No Status: Acute (2) Alcohol dependence with uncomplicated intoxication Current Visit: Yes Status: Acute (3) Asthma Current Visit: No Status: Chronic Qualifiers: (4) Cannabis dependence, uncomplicated Current Visit: No Status: Chronic (5) Nicotine dependence Current Visit: No Status: Chronic Qualifiers: (6) Bipolar disorder Current Visit: Yes Status: Acute (7) History of section Current Visit: Yes Status: Acute (8) History of laparoscopic appendectomy Current Visit: Yes Status: Acute Cleared for Admission S - Detox or Rehab [facility] Level of Care: Medically Managed Detox Regimen/Protocol: Librium Breathalyzer - Breathalyzer Breathalyzer: 0.232 Urine Drug Screen - Test Device Lot number: [id number] Expiration date: 11/21/20 - Control Is test valid?: Yes - Results Drug screen NEGATIVE: No Urine drug screen results: THC-Marijuana Inpatient Rehab Admission - Rehab Decision to Admit Inpatient rehab admission?: No
[2019-03-01] MEDS ORDERED: MAG HYDROX/AL HYDROX/SIMETH 30 ML UNIT-DOSE CUP PO PRN (19:30)
[2019-03-01] MEDS ORDERED: MELATONIN 5 MG TABLETS PO PRN (19:30)
[2019-03-01] MEDS ORDERED: METHOCARBAMOL 500 MG TABLET PO PRN (19:30)
[2019-03-01] MEDS ORDERED: IBUPROFEN 400 MG TABLET (FP) PO PRN (19:30)
[2019-03-01] MEDS ORDERED: ACETAMINOPHEN 325 MG TABLET (FP) PO PRN ×2 (19:30)
[2019-03-01] MEDS ORDERED: MENTHOL/PHENOL 1 EACH UD MM PRN (19:30)
[2019-03-01] MEDS ORDERED: MAGNESIUM CITRATE 300 ML BOTTLE PO PRN (19:30)
[2019-03-01] MEDS ORDERED: BISMUTH SUBSALICYLATE 524 MG/30 ML UD PO PRN (19:30)
[2019-03-01] MEDS ORDERED: MAGNESIUM HYDROX 2400MG/30ML ORAL SUSPENSION 30 ML CUP PO PRN (19:30)
[2019-03-01] MEDS ORDERED: ALBUTEROL SO4 8 GM HFA INHALER IH PRN (19:34)
[2019-03-01] MEDS: chlordiazePOXIDE HCL 25 MG CAPSULE PO PRN (20:19)
[2019-03-01] MEDS: NICOTINE 21 MG/24 HOURS TOPICAL PATCH TD SCH (20:22)
[2019-03-01] MEDS: THIAMINE HCL 100 MG TABLET (FP) PO SCH (22:10)
[2019-03-01] MEDS: chlordiazePOXIDE HCL 25 MG CAPSULE PO SCH (22:10)
[2019-03-02] MEDS: chlordiazePOXIDE HCL 25 MG CAPSULE PO SCH ×4 (06:02→22:15)
[2019-03-02] MEDS: NICOTINE 21 MG/24 HOURS TOPICAL PATCH TD SCH (10:04)
[2019-03-02] MEDS: PRENATAL VITAMINS W/ FOLIC ACID TABLET (FP) PO SCH (10:04)
[2019-03-02] MEDS: NICOTINE POLACRILEX 2 MG GUM BUC PRN (10:05)
[2019-03-02 10:49] LABS: BILIRUBIN,TOTAL 0.5 mg/dL (0.2-1); CREATININE 0.5 mg/dL (0.55-1.3); POTASSIUM 3.7 mmol/L (3.5-5.1)
[2019-03-02 10:54] LABS: HEMATOCRIT 33.5 % (32.4-45.2); HEMOGLOBIN 11.2 GM/dL (10.7-15.3); MCH 32.8 pg (25.7-33.7); MCHC 33.4 g/dl (32.0-36.0); MEAN CELL VOLUME 98.1 fl (80-96); MEAN PLT VOLUME 8.2 fl (7.5-11.1); PLATELET COUNT 214 K/MM3 (134-434); RBC 3.42 M/mm3 (3.60-5.2); RDW 14.6 % (11.6-15.6); WHITE BLOOD COUNT 3.5 K/mm3 (4.0-10.0)
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
--- NOTE | 2019-03-02 11:32 | PN ---
[facility] CIWA - CIWA Score Nausea/Vomitin-Mild Nausea/No Vomiting Muscle Tremors: 3 Anxiety: 1-Mildly Anxious Agitation: 2 Paroxysmal Sweats: 1-Minimal Palms Moist Orientation: 2-Disoriented Date<2 days Tacttile Disturbances: 0-None Auditory Disturbances: 0-None Visual Disturbances: 0-None Headache: 0-None Present CIWA-Ar Total Score: 10 S Progress Note (SOAP) Subjective: feeling fine today doing well with librium protocol Objective: 03/02/19 11:32 Vital Signs Temperature 97.3 F L 03/02/19 10:26 Pulse Rate 85 03/02/19 10:26 Respiratory Rate 18 03/02/19 10:26 Blood Pressure 127/84 03/02/19 10:26 O2 Sat by Pulse Oximetry (%) Laboratory Last Values WBC 3.5 K/mm3 (4.0-10.0) L 03/02/19 07:40 RBC 3.42 M/mm3 (3.60-5.2) L 03/02/19 07:40 Hgb 11.2 GM/dL (10.7-15.3) 03/02/19 07:40 Hct 33.5 % (32.4-45.2) 03/02/19 07:40 MCV 98.1 fl (80-96) H 03/02/19 07:40 MCH 32.8 pg (25.7-33.7) 03/02/19 07:40 MCHC 33.4 g/dl (32.0-36.0) 03/02/19 07:40 RDW 14.6 % (11.6-15.6) 03/02/19 07:40 Plt Count 214 K/MM3 (134-434) 03/02/19 07:40 MPV 8.2 fl (7.5-11.1) 03/02/19 07:40 Sodium 139 mmol/L (136-145) 03/02/19 07:40 Potassium 3.7 mmol/L (3.5-5.1) 03/02/19 07:40 Chloride 105 mmol/L (98-107) 03/02/19 07:40 Carbon Dioxide 27 mmol/L (21-32) 03/02/19 07:40 Anion Gap 7 MMOL/L (8-16) L 03/02/19 07:40 BUN 9 mg/dL (7-18) 03/02/19 07:40 Creatinine 0.5 mg/dL (0.55-1.3) L 03/02/19 07:40 Est GFR (CKD-EPI)AfAm 152.65 03/02/19 07:40 Est GFR (CKD-EPI)NonAf 131.71 03/02/19 07:40 Random Glucose 76 mg/dL (74-106) 03/02/19 07:40 Calcium 8.0 mg/dL (8.5-10.1) L 03/02/19 07:40 Total Bilirubin 0.5 mg/dL (0.2-1) 03/02/19 07:40 AST 17 U/L (15-37) 03/02/19 07:40 ALT 17 U/L (13-61) 03/02/19 07:40 Alkaline Phosphatase 60 U/L (45-117) 03/02/19 07:40 Total Protein 6.0 g/dl (6.4-8.2) L 03/02/19 07:40 Albumin 3.0 g/dl (3.4-5.0) L 03/02/19 07:40 lab oted Assessment: 03/02/19 11:32 withdrawal sx Plan: continue detox
[2019-03-02 14:15] LABS: EPI CELLS 3.9 /HPF (0-5/HPF); PH,URINE 6.5 (5.0-8.0); URINE APPEARANCE CLOUDY; URINE BACTERIA 4458.4 /hpf (NEGATIVE); URINE BILIRUBIN NEGATIVE (NEGATIVE); URINE CASTS 8 /lpf (0-8); URINE COLOR YELLOW; URINE GLUCOSE (UA) NEGATIVE (NEGATIVE); URINE KETONE NEGATIVE (NEGATIVE); URINE LEUK ESTERASE NEGATIVE (NEGATIVE); URINE NITRITE POSITIVE (NEGATIVE); URINE PROTEIN NEGATIVE (NEGATIVE); URINE RBC 2 /hpf (0-4); URINE UROBILINOGEN 0.2 mg/dL (0.2-1.0); URINE WBC 3 /hpf (0-5)
[2019-03-02] MEDS: hydrOXYzine PAMOATE 25 MG CAPSULE (FP) PO PRN ×2 (18:10→21:36)
[2019-03-02] MEDS: THIAMINE HCL 100 MG TABLET (FP) PO SCH (21:36)
[2019-03-02] MEDS ORDERED: QUEtiapine FUMARATE 200 MG TABLET PO SCH (22:00)
[2019-03-03] MEDS: chlordiazePOXIDE HCL 25 MG CAPSULE PO SCH ×3 (05:53→17:36)
[2019-03-03] MEDS: PRENATAL VITAMINS W/ FOLIC ACID TABLET (FP) PO SCH (10:33)
[2019-03-03] MEDS: NICOTINE 21 MG/24 HOURS TOPICAL PATCH TD SCH (10:33)
[2019-03-03] MEDS: NICOTINE POLACRILEX 2 MG GUM BUC PRN ×2 (10:34→13:22)
[2019-03-03] MEDS: hydrOXYzine PAMOATE 25 MG CAPSULE (FP) PO PRN ×2 (10:34→17:38)
--- NOTE | 2019-03-03 10:44 | PN ---
[facility] CIWA - CIWA Score Nausea/Vomitin-No Nausea/No Vomiting Muscle Tremors: 2 Anxiety: 1-Mildly Anxious Agitation: 2 Paroxysmal Sweats: 1-Minimal Palms Moist Orientation: 0-Oriented Tacttile Disturbances: 0-None Auditory Disturbances: 0-None Visual Disturbances: 0-None Headache: 0-None Present CIWA-Ar Total Score: 6 BHS Progress Note (SOAP) Subjective: patient reported that she has long history of anxiety treated with xanax bid by a psychiatrist patient requests xanax bid upon discharge from alcohol and benzo detox discuss purpose and side effects of librium discuss risks of addiction in xanax patient demands for psychiatric evaluation discuss risks of xanax mixed with alcohol misuse Objective: 03/03/19 13:13 Vital Signs Temperature 98.4 F 03/03/19 09:13 Pulse Rate 68 03/03/19 09:13 Respiratory Rate 18 03/03/19 09:13 Blood Pressure 108/73 03/03/19 09:13 O2 Sat by Pulse Oximetry (%) Laboratory Last Values WBC 3.5 K/mm3 (4.0-10.0) L 03/02/19 07:40 RBC 3.42 M/mm3 (3.60-5.2) L 03/02/19 07:40 Hgb 11.2 GM/dL (10.7-15.3) 03/02/19 07:40 Hct 33.5 % (32.4-45.2) 03/02/19 07:40 MCV 98.1 fl (80-96) H 03/02/19 07:40 MCH 32.8 pg (25.7-33.7) 03/02/19 07:40 MCHC 33.4 g/dl (32.0-36.0) 03/02/19 07:40 RDW 14.6 % (11.6-15.6) 03/02/19 07:40 Plt Count 214 K/MM3 (134-434) 03/02/19 07:40 MPV 8.2 fl (7.5-11.1) 03/02/19 07:40 Sodium 139 mmol/L (136-145) 03/02/19 07:40 Potassium 3.7 mmol/L (3.5-5.1) 03/02/19 07:40 Chloride 105 mmol/L (98-107) 03/02/19 07:40 Carbon Dioxide 27 mmol/L (21-32) 03/02/19 07:40 Anion Gap 7 MMOL/L (8-16) L 03/02/19 07:40 BUN 9 mg/dL (7-18) 03/02/19 07:40 Creatinine 0.5 mg/dL (0.55-1.3) L 03/02/19 07:40 Est GFR (CKD-EPI)AfAm 152.65 03/02/19 07:40 Est GFR (CKD-EPI)NonAf 131.71 03/02/19 07:40 Random Glucose 76 mg/dL (74-106) 03/02/19 07:40 Calcium 8.0 mg/dL (8.5-10.1) L 03/02/19 07:40 Total Bilirubin 0.5 mg/dL (0.2-1) 03/02/19 07:40 AST 17 U/L (15-37) 03/02/19 07:40 ALT 17 U/L (13-61) 03/02/19 07:40 Alkaline Phosphatase 60 U/L (45-117) 03/02/19 07:40 Total Protein 6.0 g/dl (6.4-8.2) L 03/02/19 07:40 Albumin 3.0 g/dl (3.4-5.0) L 03/02/19 07:40 Urine Color Yellow 03/02/19 09:48 Urine Appearance Cloudy 03/02/19 09:48 Urine pH 6.5 (5.0-8.0) 03/02/19 09:48 Ur Specific [place] 1.021 (1.010-1.035) 03/02/19 09:48 Urine Protein Negative (NEGATIVE) 03/02/19 09:48 Urine Glucose (UA) Negative (NEGATIVE) 03/02/19 09:48 Urine Ketones Negative (NEGATIVE) 03/02/19 09:48 Urine Blood 2+ (NEGATIVE) H 03/02/19 09:48 Urine Nitrite Positive (NEGATIVE) H 03/02/19 09:48 Urine Bilirubin Negative (NEGATIVE) 03/02/19 09:48 Urine Urobilinogen 0.2 mg/dL (0.2-1.0) 03/02/19 09:48 Ur Leukocyte Esterase Negative (NEGATIVE) 03/02/19 09:48 Urine WBC (Auto) 3 /hpf (0-5) 03/02/19 09:48 Urine RBC (Auto) 2 /hpf (0-4) 03/02/19 09:48 Urine Casts (Auto) 8 /lpf (0-8) 03/02/19 09:48 U Epithel Cells (Auto) 3.9 /HPF (0-5/HPF) 03/02/19 09:48 Urine Bacteria (Auto) 4458.4 /hpf (NEGATIVE) 03/02/19 09:48 RPR Titer Nonreactive (NONREACTIVE) 03/02/19 07:40 HIV 1&2 Antibody Screen Negative 03/02/19 07:40 HIV P24 Antigen Negative 03/02/19 07:40 lab noted repeat ua rule out contamination 03/03/19 13:15 Assessment: 03/03/19 13:16 withdrawal sx Plan: continue detox
--- NOTE | 2019-03-03 16:06 | PN ---
Psychiatric Progress Note Vital Signs: Vital Signs Period Temp Pulse Resp BP Sys/Melissa Pulse Ox Last 24 Hr 96.9 F-98.4 F 68-85 18-18 103-129/70-90 Date of Session: 03/03/19 Chief Complaint:: " I need my 300 mg of seroquel at night ". HPI: Psychiatric follow-up for this patient presenting with " mood swings ", irritability and complaint of insomnia. Was seen by Dr Lake on 03/02/19. Ms Queen is currently undergoing detoxification treatment for alcohol + cocaine. Hospital course is uneventful except for complaints of insomnia, dysphoric mood , easy irritability and poor frustration tolerance. Patient has insisted to see a psychiatrist to revisit issue of adjustment of medications. ROS: Unremarkable. Current Medications: Active Medications Generic Name Dose Route Start Last Admin Trade Name Freq PRN Reason Stop Dose Admin Acetaminophen 650 mg 03/01/19 19:30 Tylenol - PO Q6H PRN PAIN LEVEL 4 - 6 Acetaminophen 650 mg 03/01/19 19:30 Tylenol - PO Q6H PRN FEVER Al Hydroxide/Mg Hydroxide 30 ml 03/01/19 19:30 Mylanta Oral Suspension - PO Q6H PRN DYSPEPSIA Albuterol Sulfate 2 puff 03/01/19 19:34 Ventolin Hfa Inhaler - IH Q4H PRN SHORT OF BREATH/WHEEZING Bismuth Subsalicylate 524 mg 03/01/19 19:30 Pepto-Bismol - PO Q1H PRN DIARRHEA Chlordiazepoxide HCl 10 mg 03/03/19 23:00 Librium - PO 03/04/19 17:01 [id number] ELIJAH Chlordiazepoxide HCl 10 mg 03/04/19 23:00 Librium - PO 03/05/19 23:01 Q12H ELIJAH Chlordiazepoxide HCl 10 mg 03/03/19 23:00 Librium - PO 03/04/19 23:00 Q4H PRN WITHDRAWAL(CONT SUBST) Chlordiazepoxide HCl 25 mg 03/02/19 23:00 03/03/19 10:33 Librium - PO 03/03/19 17:01 25 mg [id number] ELIJAH Administration Chlordiazepoxide HCl 25 mg 03/01/19 19:30 03/01/19 20:19 Librium - PO 03/03/19 23:00 25 mg Q4H PRN Administration WITHDRAWAL(CONT SUBST) Divalproex Sodium 250 mg 03/03/19 22:00 Depakote - PO BID ELIJAH Eucalyptus/Menthol/Phenol/Sorbitol 1 each 03/01/19 19:30 Cepastat Lozenge - MM 03/07/19 19:30 Q4H PRN SORE THROAT Hydroxyzine Pamoate 25 mg 03/01/19 19:30 03/03/19 10:34 Vistaril - PO 03/07/19 19:30 25 mg Q6H PRN Administration For Anxiety Ibuprofen 400 mg 03/01/19 19:30 Motrin - PO Q6H PRN PAIN LEVEL 1 - 3 Magnesium Citrate 300 ml 03/01/19 19:30 Citroma - PO Q48H PRN CONSTIPATION Magnesium Hydroxide 30 ml 03/01/19 19:30 Milk Of Magnesia - PO PRN PRN CONSTIPATION Melatonin 5 mg 03/01/19 19:30 03/01/19 22:10 Melatonin PO 5 mg HS PRN Administration INSOMNIA Methocarbamol 500 mg 03/01/19 19:30 Robaxin - PO 03/07/19 19:30 Q6H PRN MUSCLE SPASMS Nicotine 21 mg 03/01/19 19:45 03/03/19 10:33 Nicoderm Patch - TD 21 mg DAILY ELIJAH Administration Nicotine Polacrilex 2 mg 03/01/19 19:30 03/03/19 13:22 Nicorette Gum - BUC 2 mg Q2H PRN Administration NICOTINE REPLACEMENT RX Multivit/Folic Acid/Iron 1 tab 03/02/19 10:00 03/03/19 10:33 Vitamins (Sjr) - PO 1 tab DAILY ELIJAH Administration Quetiapine Fumarate 300 mg 03/03/19 22:00 Seroquel - PO HS ELIJAH Sertraline HCl 50 mg 03/04/19 10:00 Zoloft - PO DAILY ELIJAH Thiamine HCl 100 mg 03/01/19 22:00 03/02/19 21:36 Vitamin B1 - PO 100 mg HS ELIJAH Administration Medication(s) Change(s): Seroquel is raised to 300 mg po hs. A mood stabilizer, depakote, is added to the regimen at the dose of 250 mg po bid. Side effects/ benefits of both drugs are discussed with the patient.Ms Queen is made aware of the risk of metabolic syndrome, oversedation, weight gain, polycystic ovary syndrome, liver dysfunction, blood dyscrasias, weight gain, hair loss and orthostasis. Patient gave verbal consent to MD. Agrees with plan of care. Current Side Effect: No Lab tests ordered: No Lab tests reviewed: Yes Provider note:: Chart reviewed. Dr Lake's consult note of 03/02/19 : appreciated. Patient interviewed. She complains of inability to remain asleep, mood shifts, easy irritability and intermittent anxiety. Wants to get back to her regular dose of seroquel (300 mg/hs). In addition, the patient is requesting to be on a " medication that stops my mood swings " because gabapentin is " not working ". Mental status remains stable despite these complaints. Ms Queen is well controlled during interview. See Medications section for details of pharmacological interventions. Total face to face time:: 35 Mental Status Exam - Mental Status Exam Alert and Oriented to: Time, Place, Person Cognitive Function: Good Patient Appearance: Well Groomed Mood: Irritable Affect: Mood Congruent Patient Behavior: Appropriate, Cooperative Speech Pattern: Clear, Appropriate Voice Loudness: Normal Thought Process: Goal Oriented Thought Disorder: Not Present Hallucinations: Denies Suicidal Ideation: Denies Homicidal Ideation: Denies Insight/Judgement: Fair Sleep: Poorly, Difficulty falling asleep Appetite: Good Gait/Station: Normal Psychiatric Treatment Plan - Problem List (1) Bipolar disorder Current Visit: Yes Comment: . (2) Insomnia Current Visit: Yes Qualifiers: Insomnia type: unspecified Qualified Code(s): G47.00 - Insomnia, unspecified Comment: . (3) Alcohol dependence with uncomplicated intoxication Current Visit: Yes Comment: . (4) Cannabis dependence Current Visit: Yes Comment: . (5) Nicotine dependence Current Visit: Yes Qualifiers: Comment: .
[2019-03-03] MEDS: chlordiazePOXIDE HCL 25 MG CAPSULE PO PRN (20:36)
[2019-03-03] MEDS ORDERED: QUEtiapine FUMARATE 100 MG TABLET (FP) ONE (21:37)
[2019-03-03] MEDS ORDERED: QUEtiapine FUMARATE 300 MG TABLET PO SCH (22:00)
[2019-03-03] MEDS: THIAMINE HCL 100 MG TABLET (FP) PO SCH (22:21)
[2019-03-03] MEDS: DIVALPROEX SODIUM 250 MG TABLET E.C. PO SCH (22:22)
[2019-03-03] MEDS: chlordiazePOXIDE HCL 10 MG CAPSULE PO SCH (22:22)
[2019-03-03] MEDS ORDERED: chlordiazePOXIDE HCL 10 MG CAPSULE PO PRN (23:00)
[2019-03-04] MEDS: chlordiazePOXIDE HCL 10 MG CAPSULE PO SCH ×2 (05:41→10:19)
[2019-03-04] MEDS ORDERED: SERTRALINE HCL 50 MG TABLET (FP) PO SCH (10:00)
[2019-03-04] MEDS ORDERED: QUEtiapine FUMARATE 100 MG TABLET (FP) PO SCH (10:00)
[2019-03-04] MEDS: NICOTINE 21 MG/24 HOURS TOPICAL PATCH TD SCH (10:19)
[2019-03-04] MEDS: DIVALPROEX SODIUM 250 MG TABLET E.C. PO SCH (10:19)
[2019-03-04] MEDS: PRENATAL VITAMINS W/ FOLIC ACID TABLET (FP) PO SCH (10:19)
[2019-03-04 13:48] VITALS: BP 116/84; PULSE 102; TEMP 97.2
--- NOTE | 2019-03-04 15:01 | DS ---
[facility] Detox Discharge Summary Admission Date: 03/01/19 Discharge Date: 03/04/19 - History Present History: Alcohol Dependence Additional Comments: 29 years old female admitted on 03/01/19 for alcohol withdrawal stabilization feeling better today preferring alcohol rehab today aftercare [facility] Pertinent Past History: bring in medication list and lab report to aftercare appointment - Physical Exam Results Vital Signs: Vital Signs Temperature 97.2 F L 03/04/19 13:25 Pulse Rate 102 H 03/04/19 13:25 Respiratory Rate 18 03/04/19 13:25 Blood Pressure 116/84 03/04/19 13:25 O2 Sat by Pulse Oximetry (%) Pertinent Admission Physical Exam Findings: alcohol withdrawal sx Laboratory Last Values WBC 3.5 K/mm3 (4.0-10.0) L 03/02/19 07:40 RBC 3.42 M/mm3 (3.60-5.2) L 03/02/19 07:40 Hgb 11.2 GM/dL (10.7-15.3) 03/02/19 07:40 Hct 33.5 % (32.4-45.2) 03/02/19 07:40 MCV 98.1 fl (80-96) H 03/02/19 07:40 MCH 32.8 pg (25.7-33.7) 03/02/19 07:40 MCHC 33.4 g/dl (32.0-36.0) 03/02/19 07:40 RDW 14.6 % (11.6-15.6) 03/02/19 07:40 Plt Count 214 K/MM3 (134-434) 03/02/19 07:40 MPV 8.2 fl (7.5-11.1) 03/02/19 07:40 Sodium 139 mmol/L (136-145) 03/02/19 07:40 Potassium 3.7 mmol/L (3.5-5.1) 03/02/19 07:40 Chloride 105 mmol/L (98-107) 03/02/19 07:40 Carbon Dioxide 27 mmol/L (21-32) 03/02/19 07:40 Anion Gap 7 MMOL/L (8-16) L 03/02/19 07:40 BUN 9 mg/dL (7-18) 03/02/19 07:40 Creatinine 0.5 mg/dL (0.55-1.3) L 03/02/19 07:40 Est GFR (CKD-EPI)AfAm 152.65 03/02/19 07:40 Est GFR (CKD-EPI)NonAf 131.71 03/02/19 07:40 Random Glucose 76 mg/dL (74-106) 03/02/19 07:40 Calcium 8.0 mg/dL (8.5-10.1) L 03/02/19 07:40 Total Bilirubin 0.5 mg/dL (0.2-1) 03/02/19 07:40 AST 17 U/L (15-37) 03/02/19 07:40 ALT 17 U/L (13-61) 03/02/19 07:40 Alkaline Phosphatase 60 U/L (45-117) 03/02/19 07:40 Total Protein 6.0 g/dl (6.4-8.2) L 03/02/19 07:40 Albumin 3.0 g/dl (3.4-5.0) L 03/02/19 07:40 Urine Color Yellow 03/02/19 09:48 Urine Appearance Cloudy 03/02/19 09:48 Urine pH 6.5 (5.0-8.0) 03/02/19 09:48 Ur Specific [place] 1.021 (1.010-1.035) 03/02/19 09:48 Urine Protein Negative (NEGATIVE) 03/02/19 09:48 Urine Glucose (UA) Negative (NEGATIVE) 03/02/19 09:48 Urine Ketones Negative (NEGATIVE) 03/02/19 09:48 Urine Blood 2+ (NEGATIVE) H 03/02/19 09:48 Urine Nitrite Positive (NEGATIVE) H 03/02/19 09:48 Urine Bilirubin Negative (NEGATIVE) 03/02/19 09:48 Urine Urobilinogen 0.2 mg/dL (0.2-1.0) 03/02/19 09:48 Ur Leukocyte Esterase Negative (NEGATIVE) 03/02/19 09:48 Urine WBC (Auto) 3 /hpf (0-5) 03/02/19 09:48 Urine RBC (Auto) 2 /hpf (0-4) 03/02/19 09:48 Urine Casts (Auto) 8 /lpf (0-8) 03/02/19 09:48 U Epithel Cells (Auto) 3.9 /HPF (0-5/HPF) 03/02/19 09:48 Urine Bacteria (Auto) 4458.4 /hpf (NEGATIVE) 03/02/19 09:48 RPR Titer Nonreactive (NONREACTIVE) 03/02/19 07:40 HIV 1&2 Antibody Screen Negative 03/02/19 07:40 HIV P24 Antigen Negative 03/02/19 07:40 lab noted - Treatment Hospital Course: Detox Protocol Followed, Detoxed Safely, Responded well, Discharged Condition Good, Rehab Referral Accepted Patient has Accepted a Rehab Referral to: [facility] - Medication Discharge Medications: Ambulatory Orders Gabapentin 200 mg PO TID #90 capsule 01/08/17 Gabapentin [Neurontin -] 200 mg PO TID #90 01/08/17 Olanzapine [Zyprexa -] 2.5 mg PO BID #60 tablet 01/08/17 Sertraline HCl [Zoloft -] 25 mg PO DAILY #30 tablet 01/08/17 Albuterol Sulfate Inhaler - [Ventolin HFA Inhaler -] 2 puff IH Q4H PRN #1 inhaler 03/04/19 Sulfamethoxazole/Trimethoprim [Bactrim DS -] 1 tab PO BID #10 tablet 03/04/19 - Diagnosis (1) UTI (urinary tract infection) Status: Chronic Qualifiers: Urinary tract infection type: site unspecified Hematuria presence: with hematuria Qualified Code(s): N39.0 - Urinary tract infection, site not specified; R31.9 - Hematuria, unspecified (2) Alcohol dependence with uncomplicated intoxication Status: Acute (3) Asthma Status: Chronic Qualifiers: Asthma severity: mild Asthma persistence: intermittent Asthma complication type: with status asthmaticus Qualified Code(s): J45.22 - Mild intermittent asthma with status asthmaticus (4) Nicotine dependence Status: Acute Qualifiers: Nicotine product type: cigarettes Substance use status: in withdrawal Qualified Code(s): F17.213 - Nicotine dependence, cigarettes, with withdrawal - AMA Did Patient Leave Against Medical Advice: No
[2019-03-04] MEDS ORDERED: chlordiazePOXIDE HCL 10 MG CAPSULE PO SCH (23:00)
== END 2019-03-04 13:45 | disposition home or self-care (01) | DRG 775 ==
LOC: YASAS 14:15 → Y3N 19:19
PROVIDERS: ADMIT Surgery; ATTEND Surgery
PROC: HZ2ZZZZ Detoxification Services for Substance Abuse Treatment (ICD-10-PCS; principal; 2019-03-01)
DX: F10.230 Alcohol dependence with withdrawal, uncomplicated (principal); F10.220 Alcohol dependence with intoxication, uncomplicated; F12.20 Cannabis dependence, uncomplicated; F17.213 Nicotine dependence, cigarettes, with withdrawal; F31.9 Bipolar disorder, unspecified; F19.24 Other psychoactive substance dependence with psychoactive substance-induced mood disorder; N39.0 Urinary tract infection, site not specified; J45.22 Mild intermittent asthma with status asthmaticus; G47.00 Insomnia, unspecified; Z91.5 Personal history of self-harm
CPT/HCPCS: 36415; 80053; 81003; 85027; 86593; 87389

== ENCOUNTER 2019-03-06 13:59 | Inpatient (IN) | payer OTHER | END 2019-03-20 08:55 | disposition home or self-care (01) | LOC: YASAS 13:59 → Y3E 18:27 ==